=== PATIENT | female | born 1985 | race African-American/Black ===

== ENCOUNTER 2017-06-07 12:42 | Observation (INO) | payer MEDICAID ==
[~2017-06-07] VITALS: Ht 170.2 cm; Wt 95.0 kg
[~2017-06-07 12:42] MED LIST: LEVE500 PO
[2017-06-07 12:46] VITALS: BP 179/100; PULSE 145; RESP 18; TEMP 100; O2SAT 94
[2017-06-07] MEDS ORDERED: SODIUM CHLOR 0.9% 1000 ML INJ 1,000 ML IV ONE (12:49)
[2017-06-07] MEDS ORDERED: LORazepam 2 MG/ML VIAL ONE (12:50)
[2017-06-07 12:59] VITALS: BP 151/65; PULSE 120; RESP 12; O2SAT 93
--- NOTE | 2017-06-07 12:59 | PD ---
HPI Chief Complaint: Seizure Time Seen by Provider: 12:49 Travel History International Travel<30 days: No Contact w/Intl Traveler<30days: No Traveled to known affect area: No History of Present Illness HPI 32-year-old female patient with history of seizures, is on Keppra, forgot to take her Keppra this morning because she was in her to go to congregational, had a seizure while at congregational, was post ictal when EMS brought her in, was able to answer some questions. However, had an additional seizure in the ER and she was given 2 of Ativan. Patient apparently doesn't have other significant medical issues. Modifying Factors: None Associated Signs & Symptoms: Seizures Risk Factors: History of seizures PFSH Past Medical History Headaches: Yes Seizures: Yes : 3 Para: 3 Miscarriage: 0 : 0 Past Surgical History Other Surgery: Yes (REMOVAL OF GALLSTONES) Social History Alcohol Use: No Tobacco Use: No Substance Use: No Allergies-Medications (Allergen,Severity, Reaction): Coded Allergies: No Known Allergies (Unverified , 05/07/16) Reported Meds & Prescriptions Reported Meds & Active Scripts Active Reported Keppra (Levetriacetam) 500 Mg Tab 500 Mg PO BID Review of Systems Except as stated in HPI: all other systems reviewed are Neg Physical Exam Narrative GENERAL: Well-developed young -[place] female patient currently in mild distress. Awake and oriented 3, but mildly lethargic. SKIN: Focused skin assessment warm/dry. HEAD: Atraumatic. Normocephalic. EYES: Pupils equal and round. No scleral icterus. No injection or drainage. ENT: No nasal bleeding or discharge. Mucous membranes pink and moist. NECK: Trachea midline. No JVD. CARDIOVASCULAR: Regular rate and rhythm. No murmur appreciated. RESPIRATORY: No accessory muscle use. Clear to auscultation. Breath sounds equal bilaterally. GASTROINTESTINAL: Abdomen soft, non-tender, nondistended. Hepatic and splenic margins not palpable. MUSCULOSKELETAL: No obvious deformities. No clubbing. No cyanosis. No edema. NEUROLOGICAL: Awake and mildly lethargic. No obvious cranial nerve deficits. Motor grossly within normal limits. Normal speech. PSYCHIATRIC: Appropriate mood and affect; insight and judgment normal. Data Data Last Documented VS Vital Signs Date Time Temp Pulse Resp B/P (MAP) Pulse Ox O2 Delivery O2 Flow Rate FiO2 06/07/17 14:01 18 97 Non-Rebreather 15.00 06/07/17 12:59 120 06/07/17 12:46 100.0 Orders Orders Complete Blood Count With Diff (06/07/17 12:49) Blood Glucose (06/07/17 12:49) Ecg Monitoring (06/07/17 12:49) Iv Access Insert/Monitor (06/07/17 12:49) Oximetry (06/07/17 12:49) Comprehensive Metabolic Panel (06/07/17 12:49) Sodium Chlor 0.9% 1000 Ml Inj (Ns 1000 M (06/07/17 12:49) Sodium Chloride 0.9% Flush (Ns Flush) (06/07/17 13:00) Lorazepam Inj (Ativan Inj) (06/07/17 13:00) Lorazepam Inj (Ativan Inj) (06/07/17 12:50) Levetiracetam (Keppra) (06/07/17 13:00) Chest, Single Ap (06/07/17 12:50) Ed Urine Pregnancytest Poc (06/07/17 12:50) Place In Observation (06/07/17 ) Code Status (06/07/17 15:02) Vital Signs (Adult) Q4H (06/07/17 15:02) Activity Oob Ad Noemi (06/07/17 15:02) Carpet Sewer / Telemetry .CONTINUOUS (06/07/17 15:02) Intake + Output JELANI.QSHIFT (06/07/17 15:02) Notify Dr: Other (06/07/17 15:02) Diet Npo (06/07/17 Dinner) Sodium Chlor 0.9% 1000 Ml Inj (Ns 1000 M (06/07/17 15:02) Sodium Chloride 0.9% Flush (Ns Flush) (06/07/17 15:15) Sodium Chloride 0.9% Flush (Ns Flush) (06/07/17 21:00) Acetaminophen (Tylenol) (06/07/17 15:15) Ondansetron Inj (Zofran Inj) (06/07/17 15:15) Basic Metabolic Panel (Bmp) (06/08/17 06:00) Complete Blood Count With Diff (06/08/17 06:00) Creatine Kinase (Cpk) (06/07/17 15:02) Creatine Kinase (Cpk) (06/07/17 21:02) Troponin I (06/07/17 15:02) Troponin I (06/07/17 21:02) Urinalysis - C+S If Indicated (06/07/17 15:02) Speech Therapy Consult-Eval/Tx (06/07/17 15:02) Case Management Consult (06/07/17 15:02) Scd Bilateral/Knee High JELANI.BID (06/07/17 15:02) Naloxone Inj (Narcan Inj) (06/07/17 15:15) Docusate Sodium-Senna (Heaven-Colace) (06/07/17 21:00) Magnesium Hydroxide Liq (Milk Of Magnesi (06/07/17 15:15) Sennosides (Senokot) (06/07/17 15:15) Bisacodyl Supp (Dulcolax Supp) (06/07/17 15:15) Lactulose Liq (Lactulose Liq) (06/07/17 15:15) Levetiracetam (06/07/17 15:06) Admit Order (Ed Use Only) (06/07/17 15:05) Labs Laboratory Tests Test 06/07/17 13:15 White Blood Count 12.3 TH/MM3 Red Blood Count 4.44 MIL/MM3 Hemoglobin 12.5 GM/DL Hematocrit 39.8 % Mean Corpuscular Volume 89.7 FL Mean Corpuscular Hemoglobin 28.2 PG Mean Corpuscular Hemoglobin Concent 31.4 % Red Cell Distribution Width 13.6 % Platelet Count 282 TH/MM3 Mean Platelet Volume 9.7 FL Neutrophils (%) (Auto) 67.9 % Lymphocytes (%) (Auto) 22.3 % Monocytes (%) (Auto) 8.2 % Eosinophils (%) (Auto) 0.9 % Basophils (%) (Auto) 0.7 % Neutrophils # (Auto) 8.3 TH/MM3 Lymphocytes # (Auto) 2.7 TH/MM3 Monocytes # (Auto) 1.0 TH/MM3 Eosinophils # (Auto) 0.1 TH/MM3 Basophils # (Auto) 0.1 TH/MM3 CBC Comment DIFF FINAL Differential Comment Blood Urea Nitrogen 10 MG/DL Creatinine 1.07 MG/DL Random Glucose 114 MG/DL Total Protein 8.9 GM/DL Albumin 3.8 GM/DL Calcium Level 9.0 MG/DL Alkaline Phosphatase 127 U/L Aspartate Amino Transf (AST/SGOT) 29 U/L Alanine Aminotransferase (ALT/SGPT) 45 U/L Total Bilirubin 0.6 MG/DL Sodium Level 139 MEQ/L Potassium Level 3.7 MEQ/L Chloride Level 108 MEQ/L Carbon Dioxide Level 12.9 MEQ/L Anion Gap 18 MEQ/L Estimat Glomerular Filtration Rate 73 ML/MIN MDM Medical Decision Making Medical Screen Exam Complete: Yes Emergency Medical Condition: Yes Medical Record Reviewed: Yes Interpretation(s) Laboratory Tests Test 06/07/17 13:15 White Blood Count 12.3 TH/MM3 (4.0-11.0) Mean Corpuscular Hemoglobin Concent 31.4 % (32.0-36.0) Monocytes (%) (Auto) 8.2 % (0.0-8.0) Neutrophils # (Auto) 8.3 TH/MM3 (1.8-7.7) Monocytes # (Auto) 1.0 TH/MM3 (0-0.9) Creatinine 1.07 MG/DL (0.50-1.00) Random Glucose 114 MG/DL (74-106) Total Protein 8.9 GM/DL (6.4-8.2) Alkaline Phosphatase 127 U/L (45-117) Chloride Level 108 MEQ/L (98-107) Carbon Dioxide Level 12.9 MEQ/L (21.0-32.0) Anion Gap 18 MEQ/L (5-15) Estimat Glomerular Filtration Rate 73 ML/MIN (>89) Differential Diagnosis Seizure: Breakthrough seizure versus noncompliance versus metabolic issues Narrative Course Patient had another seizure in the ER and had to be given Ativan. At this point , she had 2 seizures in fairly close succession and my plan would be to admit her for some observation. Patient had been given Keppra as well by mouth. Case was discussed with Dr. Mccarthy for admission. Diagnosis Primary Impression: Seizures Admitting Information Admitting Physician Requests: Admit Atif Ahn MD Jun 07, 2017 12:59
[2017-06-07] MEDS ORDERED: SODIUM CHLORIDE 0.9% FLUSH 10 ML FLUSH IVF PRN (13:00)
[2017-06-07] MEDS ORDERED: LORazepam 2 MG/ML VIAL IVS ONE (13:00)
[2017-06-07] MEDS ORDERED: levETIRAcetam 500 MG TAB PO ONE (13:00)
[2017-06-07 13:40] LABS: AUTOMATED NEUTROPHIL # 8.3 TH/MM3 (1.8-7.7); BASOPHIL # 0.1 TH/MM3 (0-0.2); BASOPHIL % 0.7 % (0.0-2.0); EOSINOPHIL # 0.1 TH/MM3 (0-0.4); EOSINOPHIL % 0.9 % (0.0-4.0); HEMATOCRIT 39.8 % (35.0-46.0); HEMO FLAGS DIFF FINAL; LYMPH % 22.3 % (9.0-44.0); LYMPHOCYTE # 2.7 TH/MM3 (1.0-4.8); MEAN CELL VOLUME 89.7 FL (80.0-100.0); MEAN CORPUSCULAR HEMOGLOBIN 28.2 PG (27.0-34.0); MEAN CORPUSCULAR HGB CONC 31.4 % (32.0-36.0); MONO % 8.2 % (0.0-8.0); NEUT % 67.9 % (16.0-70.0); PLATELET COUNT 282 TH/MM3 (150-450); RED BLOOD COUNT 4.44 MIL/MM3 (4.00-5.30); RED CELL DISTRIBUTION WIDTH 13.6 % (11.6-17.2); WHITE BLOOD COUNT 12.3 TH/MM3 (4.0-11.0)
[2017-06-07 13:57] LABS: ALT (GPT) 45 U/L (10-53)
[2017-06-07 14:00] LABS: ALKALINE PHOSPHATASE 127 U/L (45-117); TOTAL BILIRUBIN ADULT 0.6 MG/DL (0.2-1.0)
[2017-06-07 14:01] VITALS: RESP 18; O2SAT 97
[2017-06-07 14:02] LABS: ANION GAP 18 MEQ/L (5-15); AST (GOT) 29 U/L (15-37); BICARBONATE 12.9 MEQ/L (21.0-32.0); BLOOD UREA NITROGEN 10 MG/DL (7-18); CHLORIDE 108 MEQ/L (98-107); GLOMERULAR FILTRATION RATE 73 ML/MIN (>89); POTASSIUM 3.7 MEQ/L (3.5-5.1); SODIUM (NA) 139 MEQ/L (136-145)
--- NOTE | 2017-06-07 14:19 | RADRPT ---
EXAM DATE/TIME: 06/07/2017 13:47 [facility] COMPARISON: No previous studies available for comparison. INDICATIONS : Fever MEDICAL HISTORY : None. SURGICAL HISTORY : None. ENCOUNTER: Initial ACUITY: 1 day PAIN SCORE: 0/10 LOCATION: Bilateral chest FINDINGS: A single AP erect portable view of the chest was obtained. The study is Midinspiratory with crowding of the lung vasculature. There is hazy density in both lungs. The heart size appears within normal li mits with no focal consolidation or effusion. The bony thorax is intact. CONCLUSION: Suboptimal Midinspiratory exam with hazy opacity in both lungs which could be artifactual. Hector Judd MD on June 07, 2017 at 14:17 Board Certified Radiologist. This report was verified electronically.
--- NOTE | 2017-06-07 15:07 | HHI.HP ---
[facility] Unknown Admission Diagnosis Diagnoses: Chief Complaint: Seizure disorder. Travel History International Travel<30 Days: No Contact w/Intl Traveler <30 Da: No Traveled to Known Affected Are: No History of Present Illness This is a pleasant 32 y/o Female with history of seizures, is on Keppra, forgot to take her Keppra this morning because she was in her to go to baptism, had a seizure while at baptism, was post ictal when EMS brought her in, was able to answer some questions. However, had an additional seizure in the ER and she was given 2 of Ativan. Patient apparently doesn't have other significant medical issues. she is been seen in Emergency room the patient is very clear she is non compliant with her Keppra and only takes one daily and some times she takes two dosages, will complete 1000 mg and continue every 12 hours, she has Obesity and denies drug abuse. Review of Systems Constitutional: DENIES: Fever, Chills, Change in appetite Endocrine: DENIES: Heat/cold intolerance Eyes: DENIES: Blurred vision, Eye pain Neurologic: COMPLAINS OF: Seizures Except as stated in HPI: all other systems reviewed are Neg Past Family Social History Past Medical History Seizure disorder Obesity Past Surgical History Cholecystectomy Tubal ligation Reported Medications Reported Meds & Active Scripts Active Reported Keppra (Levetriacetam) 500 Mg Tab 500 Mg PO BID Allergies: Coded Allergies: No Known Allergies (Unverified , 05/07/16) Active Ordered Medications Current Medications Medications (Trade) Dose Ordered Sig/Yvonne Route Start Time Stop Time Status Last Admin (NS Flush) 2 ml UNSCH PRN IVF 06/07/17 13:00 Sodium Chloride 1,000 ml @ 100 mls/hr Q10H IV 06/07/17 15:02 (NS Flush) 2 ml UNSCH PRN IV FLUSH 06/07/17 15:15 (NS Flush) 2 ml BID IV FLUSH 06/07/17 21:00 (Tylenol) 650 mg Q4H PRN PO 06/07/17 15:15 (Zofran Inj) 4 mg Q6H PRN IVP 06/07/17 15:15 (Narcan Inj) 0.4 mg UNSCH PRN IV PUSH 06/07/17 15:15 (Heaven-Colace) 1 tab BID PO 06/07/17 21:00 (Milk Of Magnesia Liq) 30 ml Q12H PRN PO 06/07/17 15:15 (Senokot) 17.2 mg Q12H PRN PO 06/07/17 15:15 (Dulcolax Supp) 10 mg DAILY PRN RECTAL 06/07/17 15:15 (Lactulose Liq) 30 ml DAILY PRN PO 06/07/17 15:15 Family History asked and negative. Social History Denies any toxic habits. Physical Exam Vital Signs Vital Signs Date Time Temp Pulse Resp B/P (MAP) Pulse Ox O2 Delivery O2 Flow Rate FiO2 06/07/17 14:01 18 97 Non-Rebreather 15.00 06/07/17 12:59 120 12 151/65 (93) 93 Non-Rebreather 15.00 06/07/17 12:55 130 18 91 Non-Rebreather 15.00 06/07/17 12:46 100.0 145 18 179/100 (126) 94 Physical Exam GENERAL: Obesity, alert and oriented x 3. SKIN: Focused skin assessment warm/dry. HEAD: Atraumatic. Normocephalic. EYES: Pupils equal and round. No scleral icterus. No injection or drainage. ENT: No nasal bleeding or discharge. Mucous membranes pink and moist. NECK: Trachea midline. No JVD. CARDIOVASCULAR: Regular rate and rhythm. No murmur appreciated. RESPIRATORY: No accessory muscle use. Clear to auscultation. Breath sounds equal bilaterally. GASTROINTESTINAL: Abdomen soft, non-tender, nondistended. Hepatic and splenic margins not palpable. MUSCULOSKELETAL: No obvious deformities. No clubbing. No cyanosis. No edema. NEUROLOGICAL: Awake and mildly lethargic. No obvious cranial nerve deficits. Motor grossly within normal limits. Normal speech. PSYCHIATRIC: Appropriate mood and affect; insight and judgment normal. Laboratory Laboratory Tests Test 06/07/17 13:15 White Blood Count 12.3 Red Blood Count 4.44 Hemoglobin 12.5 Hematocrit 39.8 Mean Corpuscular Volume 89.7 Mean Corpuscular Hemoglobin 28.2 Mean Corpuscular Hemoglobin Concent 31.4 Red Cell Distribution Width 13.6 Platelet Count 282 Mean Platelet Volume 9.7 Neutrophils (%) (Auto) 67.9 Lymphocytes (%) (Auto) 22.3 Monocytes (%) (Auto) 8.2 Eosinophils (%) (Auto) 0.9 Basophils (%) (Auto) 0.7 Neutrophils # (Auto) 8.3 Lymphocytes # (Auto) 2.7 Monocytes # (Auto) 1.0 Eosinophils # (Auto) 0.1 Basophils # (Auto) 0.1 CBC Comment DIFF FINAL Differential Comment Blood Urea Nitrogen 10 Creatinine 1.07 Random Glucose 114 Total Protein 8.9 Albumin 3.8 Calcium Level 9.0 Alkaline Phosphatase 127 Aspartate Amino Transf (AST/SGOT) 29 Alanine Aminotransferase (ALT/SGPT) 45 Total Bilirubin 0.6 Sodium Level 139 Potassium Level 3.7 Chloride Level 108 Carbon Dioxide Level 12.9 Anion Gap 18 Estimat Glomerular Filtration Rate 73 Result Diagram: 06/07/17 1315 06/07/17 1315 Imaging Last Impressions Chest X-Ray 06/07/17 1250 Signed Impressions: Service Date/Time: Wednesday, June 07, 2017 13:47 - CONCLUSION: Suboptimal Midinspiratory exam with hazy opacity in both lungs which could be artifactual. MD Flakito Burrisi VTE Risk Assessment Caprini VTE Risk Assessment: No/Low Risk (score <= 1) Caprini Risk Assessment Model Point Value = 1 Point Value = 2 Point Value = 3 Point Value = 5 Age 41-60 Minor surgery BMI > 25 kg/m2 Swollen legs Varicose veins or History of unexplained or recurrent spontaneous Oral contraceptives or hormone replacement Sepsis (< 1 month) Serious lung disease, including pneumonia (< 1 month) Abnormal pulmonary function Acute myocardial infarction Congestive heart failure (< 1 month) History of inflammatory bowel disease Medical patient at bed rest Age 61-74 Arthroscopic surgery Major open surgery (> 45 min) Laparoscopic surgery (> 45 min) Malignancy Confined to bed (> 72 hours) Immobilizing plaster cast Central venous access Age >= 75 History of VTE Family history of VTE Factor V Leiden Prothrombin [id number] Lupus anticoagulant Anticardiolipin antibodies Elevated serum homocysteine Heparin-induced thrombocytopenia Other congenital or acquired thrombophilia Stroke (< 1 month) Elective arthroplasty Hip, pelvis, or leg fracture Acute spinal cord injury (< 1 month) Prophylaxis Regimen Total Risk Factor Score Risk Level Prophylaxis Regimen 0-1 Low Early ambulation 2 Moderate Order ONE of the following: *Sequential Compression Device (SCD) *Heparin 5000 units SQ BID 3-4 Higher Order ONE of the following medications: *Heparin 5000 units SQ TID *Enoxaparin/Lovenox 40 mg SQ daily (WT < 150 kg, CrCl > 30 mL/min) *Enoxaparin/Lovenox 30 mg SQ daily (WT < 150 kg, CrCl > 10-29 mL/min) *Enoxaparin/Lovenox 30 mg SQ BID (WT < 150 kg, CrCl > 30 mL/min) AND/OR *Sequential Compression Device (SCD) 5 or more Highest Order ONE of the following medications: *Heparin 5000 units SQ TID (Preferred with Epidurals) *Enoxaparin/Lovenox 40 mg SQ daily (WT < 150 kg, CrCl > 30 mL/min) *Enoxaparin/Lovenox 30 mg SQ daily (WT < 150 kg, CrCl > 10-29 mL/min) *Enoxaparin/Lovenox 30 mg SQ BID (WT < 150 kg, CrCl > 30 mL/min) AND *Sequential Compression Device (SCD) Assessment and Plan Assessment and Plan 1. Seizure: Breakthrough seizure versus noncompliance, she is very non compliant , given 1000 mg of Keppra 500mg given by mouth and 500 mg IV and continue 500 mg by mouth every 12 hours, asked for levetiracetam level and follow seizure precautions, continue Ativan 1mg every 6 hours, NPO and continue IV fluids. Drug screen 2. Obesity strongly recommended diet and exercise 3. Severe Non compliance strongly recommended to be compliant with medicines 4. Metabolic acidosis and respiratory insufficiency continue nasal cannula and follow. DVT prophylaxis SCDs. Code Status Full code. Discussed Condition With Atif Ahn MD, Guillermo MD Jun 07, 2017 3:07 pm
[2017-06-07 15:12] VITALS: BP 133/73; PULSE 128; RESP 12; O2SAT 88; O2SAT 94; O2SAT 96
[2017-06-07] MEDS ORDERED: BISACODYL 10 MG SUPP RECTAL PRN (15:15)
[2017-06-07] MEDS ORDERED: ONDANSETRON HCL 4 MG/2 ML VIAL IVP PRN (15:15)
[2017-06-07] MEDS ORDERED: LACTULOSE SYRUP 20 GM/30 ML CUP PO PRN (15:15)
[2017-06-07] MEDS ORDERED: SENNOSIDES 8.6 MG TAB PO PRN (15:15)
[2017-06-07] MEDS ORDERED: MAGNESIUM HYDROXIDE SUSP 30 ML CUP PO PRN (15:15)
[2017-06-07] MEDS ORDERED: SODIUM CHLORIDE 0.9% FLUSH 10 ML FLUSH IV FLUSH PRN (15:15)
[2017-06-07] MEDS ORDERED: NALOXONE HCL 0.4 MG/ML AMP IV PUSH PRN (15:15)
[2017-06-07] MEDS ORDERED: levETIRAcetam 500MG PREMIX INJ 100 ML IV SCH (16:00)
[2017-06-07] MEDS ORDERED: LORazepam 2 MG/ML VIAL IV PUSH PRN (16:45)
[2017-06-07] MEDS: SODIUM CHLOR 0.9% 1000 ML INJ 1,000 ML IV SCH (16:48)
[2017-06-07] MEDS: levETIRAcetam 500 MG/NS 100 ML IV SCH ×2 (16:48)
[2017-06-07 17:41] LABS: CREATINE KINASE 182 U/L (26-192)
[2017-06-07 17:44] VITALS: BP 127/80; PULSE 114; RESP 18; TEMP 100.1; O2SAT 99
[2017-06-07] MEDS: ACETAMINOPHEN 325 MG TAB PO PRN (18:10)
[2017-06-07 20:27] VITALS: BP 136/73; PULSE 110; RESP 18; TEMP 98.7; O2SAT 100
[2017-06-07] MEDS: DOCUSATE SODIUM 50 MG/SENNA 8.6 MG TAB PO SCH (20:58)
[2017-06-07] MEDS: SODIUM CHLORIDE 0.9% FLUSH 10 ML FLUSH IV FLUSH SCH (21:00)
[2017-06-07 22:05] LABS: BACTERIA, URINE RARE /hpf; BLOOD, URINE MOD (NEG); COMMENT (UR) CULT NOT INDICATED; CULTURE IF INDICATED CULT NOT INDICATED; GLUCOSE,URINE NEG (NEG); KETONE, URINE NEG (NEG); MUCUS URINE FEW /lpf (OCC); NITRITE,URINE NEG (NEG); PH, URINE 5.5 (5.0-8.5); URINE COLOR LIGHT-YELLOW (YELLW/STRAW)
[2017-06-07 23:25] LABS: CKMB 1.7 NG/ML (0.5-3.6)
[2017-06-08] VITALS (10 sets, daily range): BP systolic 126–189; BP diastolic 69–99; PULSE 74–111; RESP 16–24; TEMP 98.2–100.5; O2SAT 92–100
[2017-06-08] MEDS: SODIUM CHLOR 0.9% 1000 ML INJ 1,000 ML IV SCH ×3 (01:02→20:34)
[2017-06-08 05:15] LABS: AUTOMATED NEUTROPHIL # 5.7 TH/MM3 (1.8-7.7); BASOPHIL % 0.3 % (0.0-2.0); EOSINOPHIL # 0.1 TH/MM3 (0-0.4); EOSINOPHIL % 0.9 % (0.0-4.0); HEMATOCRIT 32.4 % (35.0-46.0); HEMO FLAGS DIFF FINAL; LYMPH % 17.4 % (9.0-44.0); LYMPHOCYTE # 1.4 TH/MM3 (1.0-4.8); MEAN CELL VOLUME 85.9 FL (80.0-100.0); MEAN CORPUSCULAR HEMOGLOBIN 27.3 PG (27.0-34.0); MEAN CORPUSCULAR HGB CONC 31.8 % (32.0-36.0); MONO % 10.1 % (0.0-8.0); NEUT % 71.3 % (16.0-70.0); PLATELET COUNT 244 TH/MM3 (150-450); RED BLOOD COUNT 3.77 MIL/MM3 (4.00-5.30); RED CELL DISTRIBUTION WIDTH 13.1 % (11.6-17.2)
[2017-06-08 05:59] LABS: BICARBONATE 22.8 MEQ/L (21.0-32.0); POTASSIUM 3.5 MEQ/L (3.5-5.1)
[2017-06-08 06:15] LABS: CKMB 1.2 NG/ML (0.5-3.6)
[2017-06-08] MEDS: DOCUSATE SODIUM 50 MG/SENNA 8.6 MG TAB PO SCH ×2 (07:36→20:34)
[2017-06-08] MEDS: SODIUM CHLORIDE 0.9% FLUSH 10 ML FLUSH IV FLUSH SCH ×2 (07:36→20:34)
[2017-06-08] MEDS: levETIRAcetam 500 MG/NS 100 ML IV SCH ×2 (07:37)
[2017-06-08] MEDS ORDERED: POTASSIUM CHLORIDE 20 MEQ CONTROLLED RELEASE TAB PO ONE (12:45)
--- NOTE | 2017-06-08 12:53 | HHI.PR ---
Subjective Remarks The patient said that she had 2 seizures yesterday. She said she missed her Keppra dose in the morning. She says her last seizure was a year from this past April. She does have a neurologist in the area. She does endorse shortness of breath with minimal exertion. She says her chest hurts a little bit when she breathes deeply. She also endorses migraines which are now better. Objective Vitals Vital Signs Date Time Temp Pulse Resp B/P (MAP) Pulse Ox O2 Delivery O2 Flow Rate FiO2 06/08/17 12:27 98.6 95 16 131/77 (95) 100 06/08/17 09:42 98.9 93 18 126/69 (88) 100 06/08/17 08:00 95 06/08/17 06:36 83 06/08/17 04:27 98.7 74 18 138/78 (98) 98 06/08/17 00:19 98.2 84 18 130/69 (89) 98 06/07/17 20:27 98.7 110 18 136/73 (94) 100 06/07/17 17:44 100.1 114 18 127/80 (96) 99 06/07/17 17:01 06/07/17 15:12 128 12 133/73 (93) 96 Nasal Cannula 2.00 06/07/17 14:01 18 97 Non-Rebreather 15.00 06/07/17 12:59 120 12 151/65 (93) 93 Non-Rebreather 15.00 06/07/17 12:55 130 18 91 Non-Rebreather 15.00 06/07/17 12:46 100.0 145 18 179/100 (126) 94 I/O 06/07/17 06/07/17 06/07/17 06/08/17 06/08/17 06/08/17 07:00 15:00 23:00 07:00 15:00 23:00 Intake Total 1000 ml Output Total 900 ml Balance 1000 ml -900 ml Intake IV Total 1000 ml Output Urine Total 900 ml # Voids 1 Result Diagram: 06/08/17 0434 06/08/17 0434 Imaging Last Impressions Chest X-Ray 06/07/17 1250 Signed Impressions: Service Date/Time: Wednesday, June 07, 2017 13:47 - CONCLUSION: Suboptimal Midinspiratory exam with hazy opacity in both lungs which could be artifactual. Hector Judd MD Objective Remarks GENERAL: Resting comfortably in bed. SKIN: Focused skin assessment warm/dry. HEAD: Atraumatic. Normocephalic. EYES: Pupils equal and round. No scleral icterus. No injection or drainage. ENT: No nasal bleeding or discharge. Mucous membranes pink and moist. NECK: Trachea midline. No JVD. CARDIOVASCULAR: Regular rate and rhythm. No murmur appreciated. RESPIRATORY: No accessory muscle use. Slight crackles at the bases. GASTROINTESTINAL: Abdomen soft, non-tender, nondistended. Hepatic and splenic margins not palpable. MUSCULOSKELETAL: No obvious deformities. No clubbing. No cyanosis. No edema. No chest wall tenderness. NEUROLOGICAL: Awake and alert. No obvious cranial nerve deficits. Motor grossly within normal limits. Normal speech. PSYCHIATRIC: Appropriate mood and affect; insight and judgment normal. Medications and IVs Current Medications Medications (Trade) Dose Ordered Sig/Yvonne Route Start Time Stop Time Status Last Admin Sodium Chloride 1,000 ml @ 100 mls/hr Q10H IV 06/07/17 15:02 06/07/17 16:48 (NS Flush) 2 ml UNSCH PRN IV FLUSH 06/07/17 15:15 (NS Flush) 2 ml BID IV FLUSH 06/07/17 21:00 06/08/17 07:36 (Tylenol) 650 mg Q4H PRN PO 06/07/17 15:15 06/07/17 18:10 (Zofran Inj) 4 mg Q6H PRN IVP 06/07/17 15:15 (Narcan Inj) 0.4 mg UNSCH PRN IV PUSH 06/07/17 15:15 (Heaven-Colace) 1 tab BID PO 06/07/17 21:00 06/08/17 07:36 (Milk Of Magnesia Liq) 30 ml Q12H PRN PO 06/07/17 15:15 (Senokot) 17.2 mg Q12H PRN PO 06/07/17 15:15 (Dulcolax Supp) 10 mg DAILY PRN RECTAL 06/07/17 15:15 (Lactulose Liq) 30 ml DAILY PRN PO 06/07/17 15:15 (Ativan Inj) 1 mg Q4H PRN IV PUSH 06/07/17 16:45 (Keppra) 500 mg Q12HR PO 06/08/17 21:00 Current Medications Medications (Trade) Dose Ordered Sig/Yvonne Route Start Time Stop Time Status Last Admin Sodium Chloride 1,000 ml @ 100 mls/hr Q10H IV 06/07/17 15:02 06/07/17 16:48 (NS Flush) 2 ml UNSCH PRN IV FLUSH 06/07/17 15:15 (NS Flush) 2 ml BID IV FLUSH 06/07/17 21:00 06/08/17 07:36 (Tylenol) 650 mg Q4H PRN PO 06/07/17 15:15 06/07/17 18:10 (Zofran Inj) 4 mg Q6H PRN IVP 06/07/17 15:15 (Narcan Inj) 0.4 mg UNSCH PRN IV PUSH 06/07/17 15:15 (Heaven-Colace) 1 tab BID PO 06/07/17 21:00 06/08/17 07:36 (Milk Of Magnesia Liq) 30 ml Q12H PRN PO 06/07/17 15:15 (Senokot) 17.2 mg Q12H PRN PO 06/07/17 15:15 (Dulcolax Supp) 10 mg DAILY PRN RECTAL 06/07/17 15:15 (Lactulose Liq) 30 ml DAILY PRN PO 06/07/17 15:15 (Ativan Inj) 1 mg Q4H PRN IV PUSH 06/07/17 16:45 (Keppra) 500 mg Q12HR PO 06/08/17 21:00 A/P Assessment and Plan Seizure disorder The pt missed her dose of Keppra the morning of her seizures. She was started on IV Keppra. - switch back to PO Keppra. - seizure precautions. - EEG pending. - consider neurology consult. Metabolic acidosis Likely s/t seizures. - Has resolved. Respiratory insufficiency The pt endorses shortness of breath with minimal exertion. CXR with ? of opacities. - cover with ceftriaxone and azithromycin. - check PA/ lateral. - continue nasal cannula and follow. - check a BNP ad EKG. Anemia May be dilutional. - check CBC in AM. DVT prophylaxis SCDs Discharge Planning Awaiting further work-up Hector Vicente DO Jun 08, 2017 12:53
[2017-06-08] MEDS: AZITHROMYCIN INJ 500 MG in SODIUM CHLOR 0.9% 250 ML INJ 250 ML IV SCH (13:55)
[2017-06-08] MEDS: cefTRIAXone INJ 1,000 MG in SODIUM CHLORIDE 0.9% INJ 100 ML IV SCH (13:56)
--- NOTE | 2017-06-08 14:20 | RADRPT ---
EXAM DATE/TIME: 06/08/2017 12:45 [facility] COMPARISON: CHEST SINGLE AP, June 07, 2017, 13:47. INDICATIONS : Short of breath MEDICAL HISTORY : None. SURGICAL HISTORY : None. ENCOUNTER: Subsequent ACUITY: 2 days PAIN SCORE: 0/10 LOCATION: chest FINDINGS: The heart is normal in size. The mediastinal contours are within normal limits. The exam does demonstrate parenchymal opacity within both lungs. I believe this is artifactual from o verlying breast tissue. No definite focal or segmental pneumonia is seen. If symptoms persist CT imag ing of the thorax could be performed. The bony structures are intact. CONCLUSION: Patchy areas of parenchymal opacity most notably on the left. I believe this is probably artifactual from overlying breast tissue. Appearance of the chest is similar to previous dated 06/07/17. Please se e above. Dread Jimenez MD on June 08, 2017 at 14:16 Board Certified Radiologist. This report was verified electronically.
[2017-06-08] MEDS: levETIRAcetam 500 MG TAB PO SCH (20:33)
[2017-06-08] MEDS: ACETAMINOPHEN 325 MG TAB PO PRN (20:34)
--- NOTE | 2017-06-08 23:56 | MG ---
cc: OMAR MARINO Sex: [id number] Race: [id number] Hyperventilation not performed. She forgot to take her Keppra and had seizures in [facility]. DESCRIPTION: A symmetric 10 Hz 40-50 microvolt posterior rhythm is seen. Overall the recording is synchronous and symmetric. Photic stimulation was performed without significant posterior driving. I do not see any hemisphere asymmetries, no epileptiform or seizure activity is noted. The patient falls asleep and reaches stage II sleep towards the end of the recording. IMPRESSION A normal awake and stage II sleep EEG, no evidence of focal or diffuse abnormality. MD LAURITA Francisco/GIANCARLO /9:05 PM /11:50 PM
[2017-06-09] VITALS (7 sets, daily range): BP systolic 133–146; BP diastolic 78–91; PULSE 89–102; RESP 18–20; TEMP 98.4–99.1; O2SAT 94–99
[2017-06-09 05:32] LABS: HEMATOCRIT 32.4 % (35.0-46.0); MEAN CELL VOLUME 85.9 FL (80.0-100.0); MEAN CORPUSCULAR HEMOGLOBIN 28.3 PG (27.0-34.0); MEAN CORPUSCULAR HGB CONC 32.9 % (32.0-36.0); PLATELET COUNT 242 TH/MM3 (150-450); RED BLOOD COUNT 3.77 MIL/MM3 (4.00-5.30); RED CELL DISTRIBUTION WIDTH 12.7 % (11.6-17.2); REVIEW FLAG FINAL; WHITE BLOOD COUNT 6.2 TH/MM3 (4.0-11.0)
[2017-06-09 05:46] LABS: BICARBONATE 22.6 MEQ/L (21.0-32.0); MAGNESIUM 1.9 MG/DL (1.5-2.5); POTASSIUM 3.6 MEQ/L (3.5-5.1)
[2017-06-09] MEDS: SODIUM CHLOR 0.9% 1000 ML INJ 1,000 ML IV SCH (06:18)
[2017-06-09] MEDS: DOCUSATE SODIUM 50 MG/SENNA 8.6 MG TAB PO SCH (08:43)
[2017-06-09] MEDS: SODIUM CHLORIDE 0.9% FLUSH 10 ML FLUSH IV FLUSH SCH (08:43)
[2017-06-09] MEDS: levETIRAcetam 500 MG TAB PO SCH (08:43)
--- NOTE | 2017-06-09 13:55 | HHI.PR ---
Subjective Remarks The patient was resting comfortably. She says she felt better and wanted to go home. No further seizures. No further chest pain. Friends at bedside. Discussed with nursing. Objective Vitals Vital Signs Date Time Temp Pulse Resp B/P (MAP) Pulse Ox O2 Delivery O2 Flow Rate FiO2 06/09/17 11:37 98.5 89 20 139/78 (98) 94 06/09/17 08:11 98.8 94 20 144/83 (103) 97 06/09/17 08:00 102 06/09/17 05:26 98.4 96 18 146/90 (108) 98 06/09/17 05:08 97 06/09/17 00:45 98.4 102 18 143/91 (108) 95 06/08/17 23:53 103 06/08/17 22:50 18 06/08/17 20:23 98.6 105 20 143/83 (103) 92 06/08/17 20:10 111 06/08/17 15:12 100.5 108 24 152/88 (109) 95 I/O 06/08/17 06/08/17 06/08/17 06/09/17 06/09/17 06/09/17 07:00 15:00 23:00 07:00 15:00 23:00 Intake Total 105 ml 350 ml Output Total 900 ml Balance -900 ml 105 ml 350 ml Intake IV Total 105 ml 350 ml Output Urine Total 900 ml # Voids 1 Result Diagram: 06/09/17 0450 06/09/17 0450 Imaging Last Impressions Chest X-Ray 06/08/17 0000 Signed Impressions: Service Date/Time: Thursday, June 08, 2017 12:45 - CONCLUSION: Patchy areas of parenchymal opacity most notably on the left. I believe this is probably artifactual from overlying breast tissue. Appearance of the chest is similar to previous dated 06/07/17. Please see above. Dread Jimenez MD Objective Remarks GENERAL: Resting comfortably in bed. SKIN: Focused skin assessment warm/dry. HEAD: Atraumatic. Normocephalic. EYES: Pupils equal and round. No scleral icterus. No injection or drainage. ENT: No nasal bleeding or discharge. Mucous membranes pink and moist. NECK: Trachea midline. No JVD. CARDIOVASCULAR: Regular rate and rhythm. No murmur appreciated. RESPIRATORY: No accessory muscle use. Clear to auscultation bilaterally. GASTROINTESTINAL: Abdomen soft, non-tender, nondistended. Hepatic and splenic margins not palpable. MUSCULOSKELETAL: No obvious deformities. No clubbing. No cyanosis. No edema. No chest wall tenderness. NEUROLOGICAL: Awake and alert. No obvious cranial nerve deficits. Motor grossly within normal limits. Normal speech. PSYCHIATRIC: Appropriate mood and affect; insight and judgment normal. Medications and IVs Current Medications Medications (Trade) Dose Ordered Sig/Yvonne Route Start Time Stop Time Status Last Admin Sodium Chloride 1,000 ml @ 100 mls/hr Q10H IV 06/07/17 15:02 06/09/17 06:18 (NS Flush) 2 ml UNSCH PRN IV FLUSH 06/07/17 15:15 (NS Flush) 2 ml BID IV FLUSH 06/07/17 21:00 06/09/17 08:43 (Tylenol) 650 mg Q4H PRN PO 06/07/17 15:15 06/08/17 20:34 (Zofran Inj) 4 mg Q6H PRN IVP 06/07/17 15:15 (Narcan Inj) 0.4 mg UNSCH PRN IV PUSH 06/07/17 15:15 (Heaven-Colace) 1 tab BID PO 06/07/17 21:00 06/09/17 08:43 (Milk Of Magnesia Liq) 30 ml Q12H PRN PO 06/07/17 15:15 (Senokot) 17.2 mg Q12H PRN PO 06/07/17 15:15 (Dulcolax Supp) 10 mg DAILY PRN RECTAL 06/07/17 15:15 (Lactulose Liq) 30 ml DAILY PRN PO 06/07/17 15:15 (Ativan Inj) 1 mg Q4H PRN IV PUSH 06/07/17 16:45 (Keppra) 500 mg Q12HR PO 06/08/17 21:00 06/09/17 08:43 Ceftriaxone Sodium 1000 mg/ Sodium Chloride 100 ml @ 200 mls/hr Q24H IV 06/08/17 14:00 06/08/17 13:56 Azithromycin 500 mg/Sodium Chloride 250 ml @ 250 mls/hr Q24H IV 06/08/17 15:00 06/08/17 13:55 A/P Assessment and Plan Seizure disorder The pt missed her dose of Keppra the morning of her seizures. She was started on IV Keppra. EEG unremarkable. No further seizures. - switch back to PO Keppra. - seizure precautions. - outpt neurology follow-up. Metabolic acidosis Likely s/t seizures. - Has resolved. Respiratory insufficiency The pt endorses shortness of breath with minimal exertion. BNP low. CXR with ? of opacities. - cover for CAP with ceftriaxone and azithromycin. - nebs as needed. Chest pain/ Elevated trops Trops peaked at 0.2. May be related to seizures. EKG reporting A flutter. - repeat EKG. - consult cardiology. - telemetry. Anemia May be dilutional. Stable. - check iron studies, B12, folate levels. DVT prophylaxis SCDs Discharge Planning Awaiting cardiology eval. D/c if cleared. Hector Vicente DO Jun 09, 2017 13:55
[2017-06-09] MEDS ORDERED: AZIT250T3 PO (13:57)
[2017-06-09] MEDS ORDERED: CEFU1TAB20 PO (13:57)
[2017-06-09 14:25] LABS: TRANSFERRIN IRON PROFILE 195 MG/DL (200-360)
[2017-06-09 14:50] LABS: FERRITIN 80 NG/ML (8-252)
[2017-06-09] MEDS: AZITHROMYCIN INJ 500 MG in SODIUM CHLOR 0.9% 250 ML INJ 250 ML IV SCH (14:57)
[2017-06-09] MEDS: cefTRIAXone INJ 1,000 MG in SODIUM CHLORIDE 0.9% INJ 100 ML IV SCH (14:59)
--- NOTE | 2017-06-09 17:34 | MB ---
cc: TERA SY DATE OF CONSULTATION: 06/09/2017 REASON FOR CONSULTATION: Abnormal troponin value HISTORY OF PRESENT ILLNESS: The patient is a 32-year-old female with history of seizure who is on Keppra chronically, forgot to take it prior to admission. She was at [facility], developed a seizure. She was given Ativan in the emergency department which resolved. She does not have any history of any significant comorbidities and no history of heart disease. Her initial troponin was mildly elevated but it has trended down. She denies any chest pain. She reports occasional shortness of breath but she is also overweight, has decreased functional status due to such. PAST MEDICAL HISTORY: Seizure disorder. Obesity. MEDICATIONS: Keppra. ALLERGIES: NO KNOWN DRUG ALLERGIES. REVIEW OF SYSTEMS 12-point review systems was reviewed. Review of systems was performed, negative, unless otherwise noted in the history of present illness. PHYSICAL EXAMINATION VITAL SIGNS: Temperature 99, pulse 92, blood pressure 133/90 mmHg. GENERAL: In general alert and oriented x3, in no acute distress. HEENT: Exam shows pupils reactive to light and accommodation, extraocular movements intact. NECK: No jugular venous distention, no thyromegaly, no lymphadenopathy, no carotid bruits. LUNGS: Clear to auscultation bilaterally. CARDIAC: Regular rate and rhythm. Distant heart sounds. No murmurs, rubs, or gallops. ABDOMEN: Non-tender, non-distended. Good bowel sounds. No hepatosplenomegaly. EXTREMITIES: No clubbing, cyanosis or edema. Good peripheral pulses. NEUROLOGIC: Cranial nerves intact. Motor sensory grossly intact. EKG: Electrocardiogram normal sinus rhythm, no significant ischemic changes. LABORATORY DATA: WBC 6.2, hemoglobin 7.7, platelet count 242, sodium 141, potassium 3.6, BUN 8, creatinine 0.75. ASSESSMENT: Minimal elevation in troponin, 0.20 now trending down. PLAN The patient never had chest pain. The patient's electrocardiogram is normal. I suspect this is probably related to the seizures. Given her age, lack of risk factors and lack of symptoms, there is no concern for obstructive coronary disease or congenital coronary anomaly. From a cardiac perspective, would rather not radiate her unnecessarily. She could be discharged with outpatient follow up with her primary care doctor. MD CHANDRIKA Ball /5:02 PM /5:10 PM
--- NOTE | 2017-06-10 08:53 | HHI.DCPOC ---
Discharge Care Plan Diagnosis: (1) Seizure disorder (2) Pneumonia Goals to Promote Your Health * To prevent worsening of your condition and complications * To maintain your health at the optimal level Directions to Meet Your Goals Take your medications as prescribed Follow your dietary instruction Follow activity as directed Keep your appointments as scheduled Take your immunizations and boosters as scheduled If your symptoms worsen call your PCP, if no PCP go to Urgent Care Center or Emergency Room Smoking is Dangerous to Your Health. Avoid second hand smoke Call the 24-hour hour crisis hotline for domestic abuse at Hector Vicente DO Jun 10, 2017 08:53
--- NOTE | 2017-06-10 08:56 | HHI.DS ---
Discharge Summary Admission Date Jun 07, 2017 at 15:08 Discharge Date: Jun 10, 2017 Admitting Diagnosis (1) Seizure disorder ICD Code: G40.909 - Epilepsy, unspecified, not intractable, without status epilepticus (2) Pneumonia ICD Code: J18.9 - Pneumonia, unspecified organism Procedures None Brief History - From Admission This is a pleasant 32 y/o Female with history of seizures, is on Keppra, forgot to take her Keppra this morning because she was in her to go to [facility], had a seizure while at [facility], was post ictal when EMS brought her in, was able to answer some questions. However, had an additional seizure in the ER and she was given 2 of Ativan. Patient apparently doesn't have other significant medical issues. she is been seen in Emergency room the patient is very clear she is non compliant with her Keppra and only takes one daily and some times she takes two dosages, will complete 1000 mg and continue every 12 hours, she has Obesity and denies drug abuse. CBC/BMP: 06/09/17 0450 06/09/17 0450 Significant Findings Laboratory Tests Test 06/07/17 13:15 06/07/17 16:33 06/07/17 21:00 06/07/17 22:09 White Blood Count 12.3 TH/MM3 (4.0-11.0) Mean Corpuscular Hemoglobin Concent 31.4 % (32.0-36.0) Monocytes (%) (Auto) 8.2 % (0.0-8.0) Neutrophils # (Auto) 8.3 TH/MM3 (1.8-7.7) Monocytes # (Auto) 1.0 TH/MM3 (0-0.9) Creatinine 1.07 MG/DL (0.50-1.00) Random Glucose 114 MG/DL (74-106) Total Protein 8.9 GM/DL (6.4-8.2) Alkaline Phosphatase 127 U/L (45-117) Chloride Level 108 MEQ/L (98-107) Carbon Dioxide Level 12.9 MEQ/L (21.0-32.0) Anion Gap 18 MEQ/L (5-15) Estimat Glomerular Filtration Rate 73 ML/MIN (>89) Troponin I LESS THAN 0.02 NG/ML 0.20 NG/ML (0.02-0.05) Levetiracetam (Keppra) Level <2.0 mcg/mL (12.0 - 46.0) Urine Occult Blood MOD (NEG) Urine RBC 25 /hpf (0-3) Urine Bacteria RARE /hpf (NONE) Urine Mucus FEW /lpf (OCC) Total Creatine Kinase 388 U/L (26-192) Test 06/08/17 04:34 06/09/17 04:50 Red Blood Count 3.77 MIL/MM3 (4.00-5.30) 3.77 MIL/MM3 (4.00-5.30) Hemoglobin 10.3 GM/DL (11.6-15.3) 10.7 GM/DL (11.6-15.3) Hematocrit 32.4 % (35.0-46.0) 32.4 % (35.0-46.0) Mean Corpuscular Hemoglobin Concent 31.8 % (32.0-36.0) Neutrophils (%) (Auto) 71.3 % (16.0-70.0) Monocytes (%) (Auto) 10.1 % (0.0-8.0) Blood Urea Nitrogen 6 MG/DL (7-18) Calcium Level 8.2 MG/DL (8.5-10.1) 8.4 MG/DL (8.5-10.1) Chloride Level 111 MEQ/L (98-107) 111 MEQ/L (98-107) Total Creatine Kinase 470 U/L (26-192) Troponin I 0.11 NG/ML (0.02-0.05) Vitamin B12 Level 1123 PG/ML (193-986) Folate 17.9 NG/ML (3.1-17.5) Imaging Last Impressions Chest X-Ray 06/08/17 0000 Signed Impressions: Service Date/Time: Thursday, June 08, 2017 12:45 - CONCLUSION: Patchy areas of parenchymal opacity most notably on the left. I believe this is probably artifactual from overlying breast tissue. Appearance of the chest is similar to previous dated 06/07/17. Please see above. Dread Jimenez MD PE at Discharge GENERAL: Resting comfortably in bed. SKIN: Focused skin assessment warm/dry. HEAD: Atraumatic. Normocephalic. EYES: Pupils equal and round. No scleral icterus. No injection or drainage. ENT: No nasal bleeding or discharge. Mucous membranes pink and moist. NECK: Trachea midline. No JVD. CARDIOVASCULAR: Regular rate and rhythm. No murmur appreciated. RESPIRATORY: No accessory muscle use. Clear to auscultation bilaterally. GASTROINTESTINAL: Abdomen soft, non-tender, nondistended. Hepatic and splenic margins not palpable. MUSCULOSKELETAL: No obvious deformities. No clubbing. No cyanosis. No edema. No chest wall tenderness. NEUROLOGICAL: Awake and alert. No obvious cranial nerve deficits. Motor grossly within normal limits. Normal speech. PSYCHIATRIC: Appropriate mood and affect; insight and judgment normal. Hospital Course Seizure disorder The pt missed her dose of Keppra the morning of her seizures. She was started on IV Keppra. EEG unremarkable. No further seizures. We switched her back to PO Keppra. She was placed on seizure precautions. She will have outpt neurology follow-up. Metabolic acidosis Resolved with supportive treatment. Respiratory insufficiency The pt endorses shortness of breath with minimal exertion. BNP low. CXR with ? of opacities. We covered for CAP with ceftriaxone and azithromycin. She will complete a course of antibiotics. Chest pain/ Elevated trops She endorsed chest pain with deep breathing. Trops peaked at 0.2. May be related to seizures. She was cleared for discharge by cardiology. She was monitored on telemetry. She will complete a course of antibiotics. Anemia The pt will need to follow up with her PCP. B12, folate and iron levels were not low. Pt Condition on Discharge: Stable Discharge Disposition: Discharge Home Discharge Time: > 30 minutes Discharge Instructions DIET: Follow Instructions for: Heart Healthy Diet Activities you can perform: Regular-No Restrictions Follow up Referrals: Neurology - 1 Week PCP Follow-up - 1 Week New Medications: Azithromycin (Azithromycin) 250 Mg Tab 250 MG PO DAILY for Infection for 3 Days, #3 TAB 0 Refills Cefuroxime (Cefuroxime) 500 Mg Tab 500 MG PO BID for Infection for 5 Days, #10 TAB 0 Refills Continued Medications: Levetiracetam (Keppra) 500 Mg Tab 500 MG PO BID, TAB Hector Vicente DO Jun 10, 2017 08:56
--- NOTE | 2017-06-10 15:23 | EKG ---
Date Performed: 06/09/2017 Time Performed: 13:59:29 PTAGE: 32 years EKG: Sinus rhythm NONSPECIFIC T-WAVE ABNORMALITY BORDERLINE ECG PREVIOUS TRACING : 04/24/2016 17.04 Compared to the previous tracing rate slower DOCTOR: Zari Pruitt Interpretating Date/Time 06/10/2017 15:23:06
== END 2017-06-09 19:26 | disposition home or self-care (01) ==
LOC: NEPC 12:42 → NEDA 15:08 → NEPGCP 17:18
PROVIDERS: ADMIT Hospitalist; ATTEND Hospitalist
DX: G40.909 Epilepsy, unspecified, not intractable, without status epilepticus (principal); J18.9 Pneumonia, unspecified organism; R06.02 Shortness of breath; R94.31 Abnormal electrocardiogram [ECG] [EKG]; R50.9 Fever, unspecified; E87.2 Acidosis; D64.9 Anemia, unspecified; Z91.14 Patient's other noncompliance with medication regimen
CPT/HCPCS: 71010; 71020; 80048; 80053; 80177; 80307; 81001; 82550; 82552; 82607; 82728; 82746; 83540; 83550; 83735; 83880; 84484; 84703; 85025; 85027; 92526; 92610; 93005; 95819; 96361; 96365; 96366; 96367; 96368; 99285; G0378; G8996; G8997; G8998; J0456; J0696; J1953; J7030; J7050; J2060

== ENCOUNTER 2017-10-22 18:32 | Emergency (ER) | payer MEDICAID ==
[~2017-10-22] VITALS: Ht 170.2 cm; Wt 113.6 kg
[~2017-10-22 18:32] MED LIST changes: +AZIT250T3 PO; +CEFU1TAB20 PO
[2017-10-22 18:45] VITALS: BP 166/76; PULSE 102; RESP 14; TEMP 98.2; O2SAT 98
--- NOTE | 2017-10-22 22:20 | PD ---
HPI Chief Complaint: Cold / Flu Symptoms Time Seen by Provider: 22:19 Travel History International Travel<30 days: No Contact w/Intl Traveler<30days: No Traveled to known affect area: No History of Present Illness HPI 32-year-old female came to the emergency room with history of fever, chills and body aches since yesterday. Patient says that her son has been sick with runny nose but she seems to have gotten the worse of it. No history of vomiting or diarrhea. Patient has not taken anything for fever. In triage temperature was within normal range. Tachycardic. She appears to be in distress. She is otherwise a relatively healthy person. She does have history of epilepsy and takes Keppra. also complains of toothache in her lower right molar area. [facility] Past Medical History Narrative Medical List of her past medical, surgical, social and family history is reviewed from the nursing note. Asthma: No Blood Disorders: No Anxiety: No Depression: No Heart Rhythm Problems: No Cancer: No Cardiovascular Problems: No High Cholesterol: No Chemotherapy: No Chest Pain: Yes Congestive Heart Failure: No COPD: No Diabetes: No Endocrine: No Headaches: Yes Immune Disorder: No Musculoskeletal: No Neurologic: Yes (SEIZURES) Psychiatric: No Reproductive: No Respiratory: No Radiation Therapy: No Seizures: Yes Sleep Apnea: No Thyroid Disease: No ?: Not : 3 Para: 3 Miscarriage: 0 : 0 Past Surgical History Other Surgery: Yes (REMOVAL OF GALLSTONES) Social History Alcohol Use: No Tobacco Use: No Substance Use: No Allergies-Medications (Allergen,Severity, Reaction): Coded Allergies: No Known Allergies (Unverified , 05/07/16) Comments No known drug allergies. Reported Meds & Prescriptions Reported Meds & Active Scripts Active Tamiflu (Oseltamivir Phosphate) 75 Mg Cap 75 Mg PO BID 5 Days Cefuroxime (Cefuroxime Axetil) 500 Mg Tab 500 Mg PO BID 5 Days Azithromycin 250 Mg Tab 250 Mg PO DAILY 3 Days Reported Keppra (Levetriacetam) 500 Mg Tab 500 Mg PO BID Narrative Medication List of her home medications reviewed from the nursing note. Review of Systems Except as stated in HPI: all other systems reviewed are Neg General / Constitutional: Positive: Fever, Chills HENT: Positive: Dental Difficulties Musculoskeletal: Positive: Myalgias Physical Exam Narrative GENERAL: Awake, alert, obese, moderate distress SKIN: Focused skin assessment warm/dry. HEAD: Atraumatic. Normocephalic. EYES: Pupils equal and round. No scleral icterus. No injection or drainage. ENT: No nasal bleeding or discharge. Mucous membranes pink and moist. Dental filling, no swelling of the gums or fluctuance. NECK: Trachea midline. No JVD. CARDIOVASCULAR: Regular rate and rhythm. No murmur appreciated. RESPIRATORY: No accessory muscle use. Clear to auscultation. Breath sounds equal bilaterally. GASTROINTESTINAL: Abdomen soft, non-tender, nondistended. Hepatic and splenic margins not palpable. MUSCULOSKELETAL: No obvious deformities. No clubbing. No cyanosis. No edema. NEUROLOGICAL: Awake and alert. No obvious cranial nerve deficits. Motor grossly within normal limits. Normal speech. PSYCHIATRIC: Appropriate mood and affect; insight and judgment normal. Data Data Last Documented VS Vital Signs Date Time Temp Pulse Resp B/P (MAP) Pulse Ox O2 Delivery O2 Flow Rate FiO2 10/22/17 23:51 10/22/17 18:45 98.2 102 14 98 Orders Orders Influenzae A/B Antigen (10/22/17 18:44) Ibuprofen (Motrin) (10/22/17 22:45) Oseltamivir (Tamiflu) (10/22/17 22:45) Ed Discharge Order (10/22/17 22:46) [facility] Medical Decision Making Medical Screen Exam Complete: Yes Emergency Medical Condition: Yes Medical Record Reviewed: Yes Differential Diagnosis Influenza, viral, caries Narrative Course 10:50 PM influenza is positive. I've given her by mouth Motrin and Tamiflu. She'll be discharged home on Tamiflu prescription. Procedures EKG Prior to Arrival: No Diagnosis Primary Impression: Influenza A Referrals: Primary Care Physician Additional Instructions: Please return to the ER if condition worsens or any other new concerns. Otherwise take the medication as per the prescription direction. Take Motrin/ Tylenol/Advil/ibuprofen for fever as needed. And lots of fluids to stay hydrated. Med/Other Pt SpecificInfo: Prescription(s) given Scripts Oseltamivir (Tamiflu) 75 Mg Cap 75 MG PO BID for Mgmt Viral Infection for 5 Days, #10 CAP 0 Refills Prov: Leilani Caban MD 10/22/17 Disposition: 01 DISCHARGE HOME Condition: Stable Leilani Caban MD Oct 22, 2017 22:19
[2017-10-22] MEDS ORDERED: OSELTAMIVIR PHOSPHATE 75 MG CAP PO ONE (22:45)
[2017-10-22] MEDS ORDERED: IBUPROFEN 600 MG TAB PO ONE (22:45)
[2017-10-22] MEDS ORDERED: OSEL75 PO (22:51)
== END 2017-10-22 23:51 | disposition home or self-care (01) ==
LOC: NEPD 18:32
DX: J10.1 Influenza due to other identified influenza virus with other respiratory manifestations (principal)
CPT/HCPCS: 87804; 99283

== ENCOUNTER 2017-12-21 17:48 | Emergency (ER) | payer MEDICAID ==
[~2017-12-21] VITALS: Ht 170.2 cm; Wt 113.6 kg
[~2017-12-21 17:48] MED LIST changes: +OSEL75 PO
[2017-12-21 17:56] VITALS: BP 144/85; PULSE 69; RESP 18; TEMP 98.3; O2SAT 99
--- NOTE | 2017-12-24 11:32 | PD ---
Physical Exam Date Seen by Provider: Dec 31, 2017 Time Seen by Provider: 17:56 Narrative 32-year-old female presents to the emergency room in for evaluation of headache that started 2 hours prior to arrival. She reports history of similar headaches in the past. Current pain is 8/10. Moderate severity. Data Data Last Documented VS Vital Signs Date Time Temp Pulse Resp B/P (MAP) Pulse Ox O2 Delivery O2 Flow Rate FiO2 12/21/17 17:56 98.3 69 18 144/85 (104) 99 MDM Supervised Visit with VIVI: No Narrative Course 32-year-old female presents to the emergency department for evaluation of headache. Patient was initially seen in triage. She left AGAINST MEDICAL ADVICE before she can be moved to medical bed. Diagnosis Primary Impression: Left against medical advice Patient Instructions: General Instructions Departure Forms: Tests/Procedures Disposition: 07 AGAINST MEDICAL ADVICE Michelle Burciaga Dec 24, 2017 11:32
== END 2017-12-21 23:52 | disposition left against medical advice (07) ==
LOC: NETRI 17:48
DX: R51 Headache (principal)
CPT/HCPCS: 99281

== ENCOUNTER 2018-02-10 18:00 | Observation (INO) | payer MEDICAID ==
[~2018-02-10] VITALS: Ht 170.2 cm; Wt 114.0 kg
[2018-02-10 18:11] VITALS: BP 152/75; PULSE 102; RESP 21; O2SAT 99
[2018-02-10] MEDS ORDERED: SODIUM CHLOR 0.9% 1000 ML INJ 1,000 ML IV ONE ×2 (18:12→20:00)
[2018-02-10] MEDS ORDERED: levETIRAcetam INJ 500 MG in SODIUM CHLORIDE 0.9% INJ 100 ML IV ONE (18:15)
[2018-02-10] MEDS ORDERED: KETOROLAC TROMETHAMINE 30 MG/ML (IVP) VIAL IV PUSH ONE (18:15)
[2018-02-10] MEDS ORDERED: SODIUM CHLORIDE 0.9% FLUSH 10 ML FLUSH IVF PRN (18:15)
--- NOTE | 2018-02-10 18:19 | PD ---
HPI Chief Complaint: Seizure Time Seen by Provider: 18:08 Travel History International Travel<30 days: No Contact w/Intl Traveler<30days: No Traveled to known affect area: No History of Present Illness HPI 32-year-old -[place] female with known seizure disorder followed by Dr. Wheeler, the neurologist in [place]. Patient is currently on Keppra 750 mg twice daily. Patient states she has not had a seizure since last July. She states she has one approximately once a year. She denies any recent illness or stimulants. She denies drug use. She denies alcohol use. She states she does have generalized body aches now and mild headache, as well as a bite to the right lateral tongue. She denies dental injury today. She states no risk that she has her tubes tied. She has no known drug allergies. PFSH Past Medical History Asthma: No Blood Disorders: No Anxiety: No Depression: No Heart Rhythm Problems: No Cancer: No Cardiovascular Problems: No High Cholesterol: No Chemotherapy: No Chest Pain: Yes Congestive Heart Failure: No COPD: No Diabetes: No Endocrine: No Headaches: Yes Immune Disorder: No Musculoskeletal: No Neurologic: Yes (SEIZURES) Psychiatric: No Reproductive: No Respiratory: No Radiation Therapy: No Seizures: Yes Sleep Apnea: No Thyroid Disease: No : 3 Para: 3 Miscarriage: 0 : 0 Past Surgical History Other Surgery: Yes (REMOVAL OF GALLSTONES) Social History Alcohol Use: No Tobacco Use: No Substance Use: No Allergies-Medications (Allergen,Severity, Reaction): Coded Allergies: No Known Allergies (Unverified Adverse Reaction, Unknown, 02/10/18) Reported Meds & Prescriptions Reported Meds & Active Scripts Active Reported Keppra (Levetiracetam) 500 Mg Tab 500 Mg BID Review of Systems Except as stated in HPI: all other systems reviewed are Neg General / Constitutional: No: Fever Eyes: No: Visual changes HENT: Positive: Headaches, Other (Small laceration to the right lateral tongue. ) Cardiovascular: No: Chest Pain or Discomfort Respiratory: No: Shortness of Breath Gastrointestinal: No: Abdominal Pain Genitourinary: No: Dysuria Musculoskeletal: Positive: Myalgias, No: Pain Skin: No Rash Neurologic: No: Weakness Psychiatric: No: Depression Endocrine: No: Polydipsia Hematologic/Lymphatic: No: Easy Bruising Physical Exam Narrative GENERAL: Patient appears postictal and in mild distress SKIN: Warm and dry. Normal color. Normal turgor. No obvious signs of trauma HEAD: Atraumatic. Normocephalic. Nontender with palpation. EYES: Pupils equal and round. No scleral icterus. No injection or drainage. ENT: No nasal bleeding or discharge. Mucous membranes pink and moist. Patient has a superficial bite to the right lateral tongue, without need for closure. There is no significant bleeding. No dental injury is noted. Pharynx is clear. Airways patent. NECK: Trachea midline. No bony tenderness or step-off. Patient has generalized soft tissue tenderness. Range of motion is full and supple. CARDIOVASCULAR: Regular rate and rhythm. RESPIRATORY: No accessory muscle use. Clear to auscultation. Breath sounds equal bilaterally. GASTROINTESTINAL: Abdomen soft, non-tender, nondistended. Hepatic and splenic margins not palpable. MUSCULOSKELETAL: Extremities without clubbing, cyanosis, or edema. No obvious deformities. Patient is generalized muscle tenderness otherwise no significant findings. NEUROLOGICAL: Awake and alert. No obvious cranial nerve deficits. Motor grossly within normal limits. Five out of 5 muscle strength in the arms and legs. Normal speech. PSYCHIATRIC: Appropriate mood and affect; insight and judgment normal. Data Data Last Documented VS Vital Signs Date Time Temp Pulse Resp B/P (MAP) Pulse Ox O2 Delivery O2 Flow Rate FiO2 02/10/18 18:48 92 Nasal Cannula 6.00 02/10/18 18:45 132 155/77 (103) 02/10/18 18:11 21 Orders Orders Complete Blood Count With Diff (02/10/18 18:12) Drug Screen, Random Urine (02/10/18 18:12) Blood Glucose (02/10/18 18:12) Ecg Monitoring (02/10/18 18:12) Iv Access Insert/Monitor (02/10/18 18:12) Oximetry (02/10/18 18:12) Comprehensive Metabolic Panel (02/10/18 18:12) Sodium Chlor 0.9% 1000 Ml Inj (Ns 1000 M (02/10/18 18:12) Sodium Chloride 0.9% Flush (Ns Flush) (02/10/18 18:15) Urinalysis - C+S If Indicated (02/10/18 18:12) Ketorolac Inj (Toradol Inj) (02/10/18 18:15) Levetiracetam Inj (Keppra Inj) (02/10/18 18:30) Lorazepam Inj (Ativan Inj) (02/10/18 18:34) Lorazepam Inj (Ativan Inj) (02/10/18 18:45) Ct Brain W/O Iv Contrast(Rout) (02/10/18 18:38) Lorazepam Inj (Ativan Inj) (02/10/18 18:39) Lorazepam Inj (Ativan Inj) (02/10/18 18:45) Sodium Chlor 0.9% 1000 Ml Inj (Ns 1000 M (02/10/18 20:00) Labs Laboratory Tests Test 02/10/18 18:30 Blood Urea Nitrogen 12 MG/DL Creatinine 0.92 MG/DL Random Glucose 117 MG/DL Total Protein 8.9 GM/DL Albumin 3.5 GM/DL Calcium Level 9.1 MG/DL Alkaline Phosphatase 113 U/L Aspartate Amino Transf (AST/SGOT) 36 U/L Alanine Aminotransferase (ALT/SGPT) 43 U/L Total Bilirubin 0.5 MG/DL Sodium Level 137 MEQ/L Potassium Level 3.9 MEQ/L Chloride Level 105 MEQ/L Carbon Dioxide Level 19.9 MEQ/L Anion Gap 12 MEQ/L Estimat Glomerular Filtration Rate 87 ML/MIN MDM Medical Decision Making Medical Screen Exam Complete: Yes Emergency Medical Condition: Yes Medical Record Reviewed: Yes Differential Diagnosis Recurrent seizure. Postictal state. Muscle strain. Right tongue laceration Narrative Course Patient appears medically stable at time of exam. Labs ordered including CBC, CMP, urine drug screen, and urinalysis. IV access is obtained and the patient is given 30 mg Toradol IV as well as 1000 mL of normal saline bolus, as well as 1000 mg Keppra IV. 1830 hours patient has recurrent seizure. She is given 2 mg lorazepam with an additional 2 mg lorazepam to break the seizure Patient is seen with Dr. Leon at this time. CT is ordered. EKG is ordered and shows sinus tachycardia at 110 bpm. This was right after her seizure. 2000 hrs. patient remains postictal, but alert and oriented. Labs show a chemistry with a carbon dioxide of 19.9, GFR is 87, glucose 117, protein 8.9 otherwise unremarkable. Diagnosis Primary Impression: Epilepsy with status epilepticus Qualified Codes: G40.911 - Epilepsy, unspecified, intractable, with status epilepticus Additional Impression: Seizure disorder Admitting Information Admitting Physician Requests: Admit Condition: Stable [place] February 10, 2018 18:18
[2018-02-10] MEDS ORDERED: levETIRAcetam INJ 100 ML IV ONE (18:30)
[2018-02-10] MEDS ORDERED: LEVE500 (18:31)
[2018-02-10] MEDS ORDERED: LORazepam 2 MG/ML VIAL ONE ×2 (18:34→18:39)
[2018-02-10 18:45] VITALS: BP 155/77; PULSE 132; O2SAT 97
[2018-02-10] MEDS ORDERED: LORazepam 2 MG/ML VIAL IV PUSH ONE ×2 (18:45)
[2018-02-10 18:48] VITALS: O2SAT 92
--- NOTE | 2018-02-10 18:49 | PD ---
Data Data Last Documented VS Vital Signs Date Time Temp Pulse Resp B/P (MAP) Pulse Ox O2 Delivery O2 Flow Rate FiO2 02/10/18 18:11 102 21 152/75 (100) 99 Orders Orders Complete Blood Count With Diff (02/10/18 18:12) Drug Screen, Random Urine (02/10/18 18:12) Blood Glucose (02/10/18 18:12) Ecg Monitoring (02/10/18 18:12) Iv Access Insert/Monitor (02/10/18 18:12) Oximetry (02/10/18 18:12) Comprehensive Metabolic Panel (02/10/18 18:12) Sodium Chlor 0.9% 1000 Ml Inj (Ns 1000 M (02/10/18 18:12) Sodium Chloride 0.9% Flush (Ns Flush) (02/10/18 18:15) Urinalysis - C+S If Indicated (02/10/18 18:12) Levetiracetam Inj (Keppra Inj) (02/10/18 18:15) Ketorolac Inj (Toradol Inj) (02/10/18 18:15) Levetiracetam Inj (Keppra Inj) (02/10/18 18:30) Lorazepam Inj (Ativan Inj) (02/10/18 18:34) Lorazepam Inj (Ativan Inj) (02/10/18 18:45) Ct Brain W/O Iv Contrast(Rout) (02/10/18 18:38) Lorazepam Inj (Ativan Inj) (02/10/18 18:39) Lorazepam Inj (Ativan Inj) (02/10/18 18:45) MDM Medical Record Reviewed: Yes Supervised Visit with VIVI: Yes Narrative Course I, Dr. Leon, have reviewed the advance practice practitioner's documentation and am in agreement, met with the patient face to face, made the diagnosis, and the medical decision making was done by me. *My assessment and Findings: Patient is a 32-year-old female with history of seizure disorder currently being followed by Dr. Wheeler in [facility]. Patient reports that prior to coming to the emergency room, she had a witnessed seizure. Patient has been compliant with her medications as she does take Keppra 750 mg twice a day. Upon presentation to the ER patient had a prolonged generalized seizure episode requiring a total of 4 mg of Ativan. 1 g of IV Keppra was ordered. Lab work including CT pending. Patient will require admission to the hospital for status epilepticus. Critical Care Narrative Aggregate critical care time was 30 minutes. Time to perform other separately billable procedures was not included in the critical care time. My time did not include minutes spent treating any other patients simultaneously or on activities that did not directly contribute to the patient's treatment. The services I provided to this patient were to treat and/or prevent clinically significant deterioration that could result in: , decompensation, deterioration I provided critical care services requiring my management, as noted below: Chart data review, documentation time, medication orders and management, vital sign assessments/reviewing monitor data, ordering and reviewing lab tests, ordering and interpreting/reviewing x-rays and diagnostic studies, care of the patient and discussion of the patient with the admitting physicians. Diagnosis Primary Impression: Epilepsy with status epilepticus Qualified Codes: G40.911 - Epilepsy, unspecified, intractable, with status epilepticus Admitting Information Admitting Physician Requests: Admit Condition: Stable Gissel Leon DO February 10, 2018 18:49
--- NOTE | 2018-02-10 19:15 | PD ---
Physical Exam Date Seen by Provider: February 10, 2018 Time Seen by Provider: 19:12 Narrative Accepted in transfer of care from Dr. Leon GENERAL: Well-developed well-nourished female postictal with soft restraints in place presently not responding to verbal stimulus status post recent dose of Ativan 2 mg IV SKIN: Warm and dry. HEAD: Normocephalic. EYES: No scleral icterus. No injection or drainage. NECK: Supple, trachea midline. No JVD or lymphadenopathy. CARDIOVASCULAR: Increased Regular rate and rhythm without murmurs, gallops, or rubs. RESPIRATORY: Breath sounds equal bilaterally. No accessory muscle use. Data Data Last Documented VS Vital Signs Date Time Temp Pulse Resp B/P (MAP) Pulse Ox O2 Delivery O2 Flow Rate FiO2 02/10/18 20:21 132 18 146/67 (93) 100 Room Air 02/10/18 18:48 6.00 Orders Orders Complete Blood Count With Diff (02/10/18 18:12) Drug Screen, Random Urine (02/10/18 18:12) Blood Glucose (02/10/18 18:12) Ecg Monitoring (02/10/18 18:12) Iv Access Insert/Monitor (02/10/18 18:12) Oximetry (02/10/18 18:12) Comprehensive Metabolic Panel (02/10/18 18:12) Sodium Chlor 0.9% 1000 Ml Inj (Ns 1000 M (02/10/18 18:12) Sodium Chloride 0.9% Flush (Ns Flush) (02/10/18 18:15) Urinalysis - C+S If Indicated (02/10/18 18:12) Ketorolac Inj (Toradol Inj) (02/10/18 18:15) Levetiracetam Inj (Keppra Inj) (02/10/18 18:30) Lorazepam Inj (Ativan Inj) (02/10/18 18:34) Lorazepam Inj (Ativan Inj) (02/10/18 18:45) Ct Brain W/O Iv Contrast(Rout) (02/10/18 18:38) Lorazepam Inj (Ativan Inj) (02/10/18 18:39) Lorazepam Inj (Ativan Inj) (02/10/18 18:45) Sodium Chlor 0.9% 1000 Ml Inj (Ns 1000 M (02/10/18 20:00) Labs Laboratory Tests Test 02/10/18 18:30 02/10/18 20:10 Blood Urea Nitrogen 12 MG/DL Creatinine 0.92 MG/DL Random Glucose 117 MG/DL Total Protein 8.9 GM/DL Albumin 3.5 GM/DL Calcium Level 9.1 MG/DL Alkaline Phosphatase 113 U/L Aspartate Amino Transf (AST/SGOT) 36 U/L Alanine Aminotransferase (ALT/SGPT) 43 U/L Total Bilirubin 0.5 MG/DL Sodium Level 137 MEQ/L Potassium Level 3.9 MEQ/L Chloride Level 105 MEQ/L Carbon Dioxide Level 19.9 MEQ/L Anion Gap 12 MEQ/L Estimat Glomerular Filtration Rate 87 ML/MIN White Blood Count 9.7 TH/MM3 Red Blood Count 4.40 MIL/MM3 Hemoglobin 12.3 GM/DL Hematocrit 36.6 % Mean Corpuscular Volume 83.2 FL Mean Corpuscular Hemoglobin 28.0 PG Mean Corpuscular Hemoglobin Concent 33.6 % Red Cell Distribution Width 13.4 % Platelet Count 247 TH/MM3 Mean Platelet Volume 8.8 FL Neutrophils (%) (Auto) 78.5 % Lymphocytes (%) (Auto) 10.8 % Monocytes (%) (Auto) 10.3 % Eosinophils (%) (Auto) 0.2 % Basophils (%) (Auto) 0.2 % Neutrophils # (Auto) 7.6 TH/MM3 Lymphocytes # (Auto) 1.0 TH/MM3 Monocytes # (Auto) 1.0 TH/MM3 Eosinophils # (Auto) 0.0 TH/MM3 Basophils # (Auto) 0.0 TH/MM3 CBC Comment DIFF FINAL Differential Comment [facility] Medical Record Reviewed: Yes Supervised Visit with VIVI: No Differential Diagnosis Accepted in transfer of care from Dr. Leon; please refer to her dictation Narrative Course Accepted in transfer of care from Dr. Leon; follow up CT/labs and admit for status epilepticus --requiring a total of Ativan 4 mg IV since arrival to the emergency department as well as bolus of Keppra 500 mg IV. Patient is currently postictal after recent administration of IV Ativan. Patient is also noted to be tachycardic; bolus of normal saline 1 L administered, at 7:46 pm. @ 20:30 awake responds to her name and reports feels improved @ 2100 patient discussed with Laura LUNDBERG via PA --> OBS Diagnosis Primary Impression: Epilepsy with status epilepticus Qualified Codes: G40.911 - Epilepsy, unspecified, intractable, with status epilepticus Admitting Information Admitting Physician Requests: Admit Condition: Stable Dee Arzola MD February 10, 2018 19:15
[2018-02-10 19:37] LABS: ALBUMIN 3.5 GM/DL (3.4-5.0); AST (GOT) 36 U/L (15-37); BICARBONATE 19.9 MEQ/L (21.0-32.0); BLOOD UREA NITROGEN 12 MG/DL (7-18); CALCIUM 9.1 MG/DL (8.5-10.1); CHLORIDE 105 MEQ/L (98-107); CREATININE 0.92 MG/DL (0.50-1.00); GLOMERULAR FILTRATION RATE 87 ML/MIN (>89); GLUCOSE,RANDOM 117 MG/DL (74-106); SODIUM (NA) 137 MEQ/L (136-145)
[2018-02-10 19:39] LABS: ALT (GPT) 43 U/L (10-53)
[2018-02-10 19:41] LABS: ALKALINE PHOSPHATASE 113 U/L (45-117); TOTAL BILIRUBIN ADULT 0.5 MG/DL (0.2-1.0); TOTAL PROTEIN 8.9 GM/DL (6.4-8.2)
[2018-02-10 20:21] VITALS: BP 146/67; PULSE 132; RESP 18; O2SAT 100
[2018-02-10 20:31] LABS: AUTOMATED NEUTROPHIL # 7.6 TH/MM3 (1.8-7.7); BASOPHIL % 0.2 % (0.0-2.0); EOSINOPHIL % 0.2 % (0.0-4.0); HEMATOCRIT 36.6 % (35.0-46.0); HEMOGLOBIN 12.3 GM/DL (11.6-15.3); LYMPH % 10.8 % (9.0-44.0); MEAN CELL VOLUME 83.2 FL (80.0-100.0); MEAN CORPUSCULAR HGB CONC 33.6 % (32.0-36.0); MEAN PLATELET VOLUME 8.8 FL (7.0-11.0); MONO % 10.3 % (0.0-8.0); NEUT % 78.5 % (16.0-70.0); PLATELET COUNT 247 TH/MM3 (150-450); RED CELL DISTRIBUTION WIDTH 13.4 % (11.6-17.2); WHITE BLOOD COUNT 9.7 TH/MM3 (4.0-11.0)
--- NOTE | 2018-02-10 20:39 | RADRPT ---
EXAM DATE: 02/10/2018 8:36 PM EDT AGE/SEX: 32 years / Female INDICATIONS: Seizure CLINICAL DATA: This is the patient's initial encounter. Patient reports that signs and symptoms have been present for 1 day and indicates a pain score of 0/10. MEDICAL/SURGICAL HISTORY: . Seizure Tubal ligation. RADIATION DOSE: 56.35 CTDI (mGy) COMPARISON: No prior [facility] exams available for comparison. TECHNIQUE: CT of the head without contrast. Using automated exposure control and adjustment of the mA and/or kV according to patient size, radiation dose was kept as low as reasonably achievable to ob tain optimal diagnostic quality images. FINDINGS: Cerebrum: The ventricles are normal for age. No evidence of midline shift, mass lesion, hemorrhage o r acute infarction. No extraaxial fluid collections are seen. Posterior Fossa: The cerebellum and brainstem are intact. The 4th ventricle is midline. The cerebe llopontine angle is unremarkable. Extracranial: The visualized portion of the orbits is intact. Skull: The calvaria is intact. No evidence of skull fracture. CONCLUSION: 1. No acute intracranial abnormality. Electronically signed by: George Sorenson MD 02/10/2018 8:37 PM EDT
[2018-02-10 21:23] VITALS: BP 146/67; PULSE 116; RESP 16; O2SAT 98
[2018-02-11] MEDS ORDERED: ACETAMINOPHEN 325 MG TAB PO PRN (00:30)
[2018-02-11] MEDS ORDERED: BISACODYL 10 MG SUPP RECTAL PRN (00:30)
[2018-02-11] MEDS ORDERED: LORazepam 2 MG/ML VIAL IV PUSH PRN (00:30)
[2018-02-11] MEDS ORDERED: ONDANSETRON HCL 4 MG/2 ML VIAL IVP PRN (00:30)
[2018-02-11] MEDS ORDERED: LACTULOSE SYRUP 20 GM/30 ML CUP PO PRN (00:30)
[2018-02-11] MEDS ORDERED: SODIUM CHLORIDE 0.9% FLUSH 10 ML FLUSH IV FLUSH PRN (00:30)
[2018-02-11] MEDS ORDERED: MAGNESIUM HYDROXIDE SUSP 30 ML CUP PO PRN (00:30)
[2018-02-11] MEDS ORDERED: SENNOSIDES 8.6 MG TAB PO PRN (00:30)
[2018-02-11] MEDS ORDERED: NALOXONE HCL 0.4 MG/ML AMP IV PUSH PRN (00:30)
--- NOTE | 2018-02-11 01:04 | HHI.HP ---
[facility] Service [facility] Primary Care Physician Unknown Admission Diagnosis Seizure Diagnoses: Travel History International Travel<30 Days: No Contact w/Intl Traveler <30 Da: No Traveled to Known Affected Are: No History of Present Illness 32-year-old female with known seizure disorder presents to the emergency department for evaluation of a seizure. During her evaluation in the emergency department the patient had another witnessed generalized clonic tonic seizure requiring multiple doses of Ativan. She sustained a tongue laceration during the event. She is followed by Dr. Wheeler in [place] and is currently compliant with Keppra 750 mg twice daily. She reports compliance with the medication and denies any foreign substance ingestions. She states her last seizure was . Denies any bowel or bladder incontinence. No fevers/chills. No chest pain. No shortness of breath. No abdominal pain. No nausea/vomiting/ diarrhea. No lateralizing signs/symptoms. Review of Systems Except as stated in HPI: all other systems reviewed are Neg Past Family Social History Past Medical History Seizure disorder Past Surgical History None Reported Medications Reported Meds & Active Scripts Active Reported Keppra (Levetiracetam) 500 Mg Tab 500 Mg BID Allergies: Coded Allergies: No Known Allergies (Unverified Adverse Reaction, Unknown, 02/10/18) Family History Negative for CAD/DM Social History Occasional alcohol. Denies tobacco and illicit drugs. Physical Exam Vital Signs Vital Signs Date Time Temp Pulse Resp B/P (MAP) Pulse Ox O2 Delivery O2 Flow Rate FiO2 02/10/18 21:23 116 16 146/67 (93) 98 Room Air 02/10/18 20:21 132 18 146/67 (93) 100 Room Air 02/10/18 18:48 92 Nasal Cannula 6.00 02/10/18 18:45 132 155/77 (103) 97 02/10/18 18:11 98 Room Air 02/10/18 18:11 102 21 152/75 (100) 99 Physical Exam GENERAL: -[place] female lying in bed SKIN: No rashes, ecchymoses or lesions. Cool and dry. HEAD: Atraumatic. Normocephalic. No temporal or scalp tenderness. EYES: Pupils equal round and reactive. Extraocular motions intact. No scleral icterus. No injection or drainage. ENT: Nose without bleeding, purulent drainage or septal hematoma. Throat without erythema, tonsillar hypertrophy or exudate. Uvula midline. Airway patent. Tongue laceration. NECK: Trachea midline. No JVD or lymphadenopathy. Supple, nontender, no meningeal signs. CARDIOVASCULAR: Regular rate and rhythm without murmurs, gallops, or rubs. RESPIRATORY: Clear to auscultation. Breath sounds equal bilaterally. No wheezes , rales, or rhonchi. GASTROINTESTINAL: Abdomen soft, non-tender, nondistended. No hepato-splenomegaly , or palpable masses. No guarding. MUSCULOSKELETAL: Extremities without clubbing, cyanosis, or edema. No joint tenderness, effusion, or edema noted. No calf tenderness. NEUROLOGICAL: Awake and alert. Cranial nerves II through XII intact. Motor and sensory grossly within normal limits. Normal speech. Laboratory Laboratory Tests Test 02/10/18 18:30 02/10/18 20:10 Blood Urea Nitrogen 12 Creatinine 0.92 Random Glucose 117 Total Protein 8.9 Albumin 3.5 Calcium Level 9.1 Alkaline Phosphatase 113 Aspartate Amino Transf (AST/SGOT) 36 Alanine Aminotransferase (ALT/SGPT) 43 Total Bilirubin 0.5 Sodium Level 137 Potassium Level 3.9 Chloride Level 105 Carbon Dioxide Level 19.9 Anion Gap 12 Estimat Glomerular Filtration Rate 87 White Blood Count 9.7 Red Blood Count 4.40 Hemoglobin 12.3 Hematocrit 36.6 Mean Corpuscular Volume 83.2 Mean Corpuscular Hemoglobin 28.0 Mean Corpuscular Hemoglobin Concent 33.6 Red Cell Distribution Width 13.4 Platelet Count 247 Mean Platelet Volume 8.8 Neutrophils (%) (Auto) 78.5 Lymphocytes (%) (Auto) 10.8 Monocytes (%) (Auto) 10.3 Eosinophils (%) (Auto) 0.2 Basophils (%) (Auto) 0.2 Neutrophils # (Auto) 7.6 Lymphocytes # (Auto) 1.0 Monocytes # (Auto) 1.0 Eosinophils # (Auto) 0.0 Basophils # (Auto) 0.0 CBC Comment DIFF FINAL Differential Comment Result Diagram: 02/10/18200902/10/18 1830 Caprini VTE Risk Assessment Caprini VTE Risk Assessment: No/Low Risk (score <= 1) Caprini Risk Assessment Model Point Value = 1 Point Value = 2 Point Value = 3 Point Value = 5 Age 41-60 Minor surgery BMI > 25 kg/m2 Swollen legs Varicose veins or History of unexplained or recurrent spontaneous Oral contraceptives or hormone replacement Sepsis (< 1 month) Serious lung disease, including pneumonia (< 1 month) Abnormal pulmonary function Acute myocardial infarction Congestive heart failure (< 1 month) History of inflammatory bowel disease Medical patient at bed rest Age 61-74 Arthroscopic surgery Major open surgery (> 45 min) Laparoscopic surgery (> 45 min) Malignancy Confined to bed (> 72 hours) Immobilizing plaster cast Central venous access Age >= 75 History of VTE Family history of VTE Factor V Leiden Prothrombin [id number] Lupus anticoagulant Anticardiolipin antibodies Elevated serum homocysteine Heparin-induced thrombocytopenia Other congenital or acquired thrombophilia Stroke (< 1 month) Elective arthroplasty Hip, pelvis, or leg fracture Acute spinal cord injury (< 1 month) Prophylaxis Regimen Total Risk Factor Score Risk Level Prophylaxis Regimen 0-1 Low Early ambulation 2 Moderate Order ONE of the following: *Sequential Compression Device (SCD) *Heparin 5000 units SQ BID 3-4 Higher Order ONE of the following medications: *Heparin 5000 units SQ TID *Enoxaparin/Lovenox 40 mg SQ daily (WT < 150 kg, CrCl > 30 mL/min) *Enoxaparin/Lovenox 30 mg SQ daily (WT < 150 kg, CrCl > 10-29 mL/min) *Enoxaparin/Lovenox 30 mg SQ BID (WT < 150 kg, CrCl > 30 mL/min) AND/OR *Sequential Compression Device (SCD) 5 or more Highest Order ONE of the following medications: *Heparin 5000 units SQ TID (Preferred with Epidurals) *Enoxaparin/Lovenox 40 mg SQ daily (WT < 150 kg, CrCl > 30 mL/min) *Enoxaparin/Lovenox 30 mg SQ daily (WT < 150 kg, CrCl > 10-29 mL/min) *Enoxaparin/Lovenox 30 mg SQ BID (WT < 150 kg, CrCl > 30 mL/min) AND *Sequential Compression Device (SCD) Assessment and Plan Assessment and Plan Assessment/plan: 1. Seizure disorder/status epilepticus Status post IV Ativan with subsequent resolution Loading dose of Keppra given in the emergency department Continue home Keppra, level pending Urine drug screen pending Follow-up with neurologist as outpatient if no further seizures FEN Regular diet Electrolytes: Monitor and replete as needed Gissel Youssef MD February 11, 2018 01:04
[2018-02-11 01:30] VITALS: BP 129/74; PULSE 122; RESP 17; TEMP 100.2; O2SAT 93
[2018-02-11] MEDS ORDERED: IBUP1TAB7 PO (01:36)
[2018-02-11] MEDS ORDERED: IBUPROFEN 800 MG TAB PO PRN (02:15)
[2018-02-11 04:00] VITALS: BP 139/78; PULSE 97; RESP 17; TEMP 99.1; O2SAT 97
[2018-02-11 05:52] LABS: BACTERIA, URINE OCC /hpf; BILIRUBIN, URINE NEG (NEG); BLOOD, URINE NEG (NEG); GLUCOSE,URINE NEG (NEG); KETONE, URINE NEG (NEG); MUCUS URINE FEW /lpf (OCC); NITRITE,URINE NEG (NEG); PH, URINE 5.5 (5.0-8.5); SQUAMOUS EPITHELIAL CELL URINE 1 /hpf (0-5); URINE COLOR YELLOW (YELLW/STRAW); URINE LEUKOCYTE ESTERASE NEG (NEG)
[2018-02-11 07:37] VITALS: BP 121/62; PULSE 90; RESP 18; TEMP 98.8; O2SAT 94
[2018-02-11] MEDS ORDERED: KEPP10002 PO (07:56)
[2018-02-11] MEDS ORDERED: levETIRAcetam 500 MG TAB PO SCH (09:00)
[2018-02-11] MEDS: levETIRAcetam 500 MG TAB PO SCH ×2 (09:25→20:34)
[2018-02-11] MEDS: DOCUSATE SODIUM 50 MG/SENNA 8.6 MG TAB PO SCH ×2 (09:25→20:34)
[2018-02-11] MEDS: SODIUM CHLORIDE 0.9% FLUSH 10 ML FLUSH IV FLUSH SCH ×2 (09:26→20:34)
--- NOTE | 2018-02-11 09:31 | HHI.PR ---
Subjective Remarks Follow-up for seizures. Patient was seen around 8:40 AM. The patient is awoken from her sleep. She complains of mild diffuse headache. Denies any other medical complaints including no dizziness, neck pain, chest pain, shortness of breath, or abdominal complaints. No further seizures reported since she was in the ER last night. She states she has been on Keppra 1500 mg twice a day for at least the past 2 months. She has never missed any doses or ran out of any medications. She follows with neurologist Dr. Wheeler in [place]. Discussed seizure precautions and no driving for at least 6 months, patient verbalized understanding. Objective Vitals Vital Signs Date Time Temp Pulse Resp B/P (MAP) Pulse Ox O2 Delivery O2 Flow Rate FiO2 02/11/18 07:37 98.8 90 18 121/62 (81) 94 02/11/18 04:00 99.1 97 17 139/78 (98) 97 02/11/18 01:30 100.2 122 17 129/74 (92) 93 02/10/18 21:23 116 16 146/67 (93) 98 Room Air 02/10/18 20:21 132 18 146/67 (93) 100 Room Air 02/10/18 18:48 92 Nasal Cannula 6.00 02/10/18 18:45 132 155/77 (103) 97 02/10/18 18:11 98 Room Air 02/10/18 18:11 102 21 152/75 (100) 99 Result Diagram: 02/10/18200902/10/181829 Imaging Last Impressions Head CT 02/10/18 1838 Signed Impressions: CONCLUSION: 1. No acute intracranial abnormality. Objective Remarks GENERAL: Well-nourished, well-developed pleasant young AA female patient in [facility]. SKIN: Warm and dry. No rash. HEENT: Normocephalic. Atraumatic. Pupils equal and round. Mucous membranes pink and moist. NECK: Supple. Trachea midline. CARDIOVASCULAR: Regular rate and rhythm. No murmur appreciated. RESPIRATORY: No accessory muscle use. Clear to auscultation. Breath sounds equal bilaterally. GASTROINTESTINAL: Abdomen soft, non-tender, nondistended. Normoactive bowel sounds x4. MUSCULOSKELETAL: No obvious deformities. Extremities without clubbing, cyanosis , or edema. NEUROLOGICAL: Awake and alert. No obvious cranial nerve deficits. Motor grossly within normal limits. Moving all extremities spontaneously. Normal speech. PSYCHIATRIC: Appropriate mood and affect; insight and judgment normal. Medications and IVs Current Medications Medications (Trade) Dose Ordered Sig/Yvonne Route Start Time Stop Time Status Last Admin (NS Flush) 2 ml UNSCH PRN IV FLUSH 02/11/18 00:30 (NS Flush) 2 ml BID IV FLUSH 02/11/18 09:00 02/11/18 09:26 (Tylenol) 650 mg Q4H PRN PO 02/11/18 00:30 (Zofran Inj) 4 mg Q6H PRN IVP 02/11/18 00:30 (Narcan Inj) 0.4 mg UNSCH PRN IV PUSH 02/11/18 00:30 (Heaven-Colace) 1 tab BID PO 02/11/18 09:00 02/11/18 09:25 (Milk Of Magnesia Liq) 30 ml Q12H PRN PO 02/11/18 00:30 (Senokot) 17.2 mg Q12H PRN PO 02/11/18 00:30 (Dulcolax Supp) 10 mg DAILY PRN RECTAL 02/11/18 00:30 (Lactulose Liq) 30 ml DAILY PRN PO 02/11/18 00:30 (Motrin) 800 mg Q8HR PRN PO 02/11/18 02:15 02/11/18 09:27 (Keppra) 1,500 mg BID PO 02/11/18 09:00 02/11/18 09:25 A/P Assessment and Plan 32-year-old female with known seizure disorder on Keppra presents to the emergency department for evaluation of a seizure. Seizure disorder with status epilepticus: Patient with a seizure prior to arrival, recurrent seizure while in the ED, s/p IV Ativan with subsequent resolution -Head CT reviewed, no acute findings -UDS negative -Loading dose of Keppra given in the emergency department -Continue patient's home Keppra 1500mg bid, level pending -Check EEG -Consult neurology as patient is having breakthrough seizures despite compliance with high dose keppra Headache: likely secondary to seizure -continue tylenol prn, ibuprofen prn -monitor for improvement DVT Prophylaxis: teds/SCDs Discharge Planning Awaiting EEG results and neurology consult. Olena Contreras PA-C February 11, 2018 9:31 am
[2018-02-11 12:14] VITALS: BP 117/56; PULSE 95; RESP 18; TEMP 97.4; O2SAT 98
--- NOTE | 2018-02-11 14:28 | MG ---
cc: Margi Zimmer MD EEG NUMBER [id number] REFERRING: GWENDOLYN Contreras. INDICATION: In room F65 with hyperventilation, photic stimulation. CT negative. EEG is awake, drowsy, asleep. Evaluation for seizure. Had another witnessed seizure in the ER, requiring multiple doses of Ativan. A 32-year-old woman with history of seizures, headaches, alcohol, caffeine use, on Keppra and Motrin. DESCRIPTION OF RECORD: Quite a bit of artifact noted from the beginning portion of the recording. Photic stimulation did elicit a driving response. Overall, when artifact was taken out, seems to be a normal alpha rhythm 8 Hz. Hyperventilation without any epileptic activity. A lot of EKG artifact, but when the patient is awake it seems that she has normal background activity. No epileptic activity noted. Clinical correlation. Margi Zimmer MD DF/TL , 02:17 PM , 02:27 PM
--- NOTE | 2018-02-11 15:01 | EKG ---
Date Performed: 02/10/2018 Time Performed: 18:17:12 PTAGE: 32 years EKG: SINUS TACHYCARDIA POSSIBLE LEFT ATRIAL ENLARGEMENT POSSIBLE LEFT VENTRICULAR HYPERTROPHY NO NSPECIFIC T-WAVE ABNORMALITY ABNORMAL ECG WARNING: DATA QUALITY MAY AFFECT INTERPRETATION Since the PREVIOUS TRACING , no significant change noted PREVIOUS TRACIN06/09/2017 13.59 DOCTOR: Black Hines Interpretating Date/Time 02/11/2018 15:00:45
[2018-02-11 16:22] VITALS: BP 148/64; PULSE 99; RESP 18; TEMP 98.3; O2SAT 95
[2018-02-11 19:40] VITALS: BP 121/60; PULSE 90; RESP 16; TEMP 98.3; O2SAT 94
--- NOTE | 2018-02-11 19:56 | MB ---
cc: Ran Doherty MD, PhD Ran Doherty MD PhD DATE: 02/11/2018 REASON FOR CONSULTATION: Breakthrough seizure. HISTORY OF PRESENT ILLNESS: Ms. Hawkins is a very nice 32-year-old female who has had seizures since 2011 of unknown cause. These are grand mal seizures where she loses with generalized tonic-clonic activity. She has been under the care of Dr. Lazaro in [place], currently taking Keppra. She states she takes 750 mg. She takes 2 b.i.d. She presents to the hospital with recurrent generalized seizure. In the ER, she had a recurrent witnessed generalized tonic-clonic seizure treated with several doses of Ativan. PAST MEDICAL HISTORY: Seizure disorder. MEDICATIONS: She takes Keppra, she states 750 mg 2 tablets b.i.d. ALLERGIES: NONE KNOWN. NEUROLOGICAL EXAMINATION. VITAL SIGNS: Blood pressure is 148/64, pulse 99, respiratory rate 18, temperature 98.3 degrees. Higher cortical functions are normal. Cranial nerves 2-12 are normal. Motor exam had normal strength and tone of all groups. There is no drift. Reflexes are symmetric. IMAGING STUDIES: CT of the brain normal. LABORATORY DATA: White count 9700, hemoglobin 12.3, hematocrit 36.6%, platelet count 247,000. Sodium is 137, potassium 3.9, chloride 105, CO2 of 19.9, BUN is 12, creatinine 0.92, GFR is 87, AST 36, ALT 43. Tox screen is negative. UA: pH is 5.5, specific gravity 1.010. IMPRESSION: Breakthrough seizures. She is already at a maximum dose of Keppra 1500 mg b.i.d. RECOMMENDATIONS: Start Trileptal. We will institute a dose of 300 mg b.i.d. Would recommend gradually titrating the dose over several weeks to 600 mg b.i.d. When stable on Trileptal, could then consider tapering off Keppra. We will obtain an MRI of the brain. If the patient is seizure free tomorrow and tolerating Trileptal, I feel that it is safe for discharge to followup with Dr. Lazaro in [place]. Ran Doherty MD, PhD SAYDA/ , 07:41 PM , 07:55 PM
[2018-02-11] MEDS: OXcarbazepine 300 MG TAB PO SCH (21:27)
[2018-02-12 00:39] VITALS: BP 117/59; PULSE 75; RESP 16; TEMP 98.4; O2SAT 97
[2018-02-12 04:25] VITALS: BP 126/81; PULSE 93; RESP 16; TEMP 98.4; O2SAT 96
[2018-02-12 06:38] LABS: BICARBONATE 20.3 MEQ/L (21.0-32.0); CALCIUM 8.4 MG/DL (8.5-10.1); CREATININE 0.71 MG/DL (0.50-1.00)
[2018-02-12 07:41] VITALS: BP 118/57; PULSE 69; RESP 18; TEMP 98.5; O2SAT 95
[2018-02-12 09:27] LABS: AUTOMATED NEUTROPHIL # 2.9 TH/MM3 (1.8-7.7); BASOPHIL % 0.5 % (0.0-2.0); EOSINOPHIL # 0.1 TH/MM3 (0-0.4); EOSINOPHIL % 2.1 % (0.0-4.0); HEMATOCRIT 34.1 % (35.0-46.0); HEMOGLOBIN 11.1 GM/DL (11.6-15.3); LYMPH % 28.8 % (9.0-44.0); LYMPHOCYTE # 1.5 TH/MM3 (1.0-4.8); MEAN CELL VOLUME 84.2 FL (80.0-100.0); MEAN CORPUSCULAR HEMOGLOBIN 27.4 PG (27.0-34.0); MEAN CORPUSCULAR HGB CONC 32.5 % (32.0-36.0); MEAN PLATELET VOLUME 9.2 FL (7.0-11.0); MONO % 12.6 % (0.0-8.0); MONOCYTE # 0.7 TH/MM3 (0-0.9); PLATELET COUNT 255 TH/MM3 (150-450); RED BLOOD COUNT 4.04 MIL/MM3 (4.00-5.30); RED CELL DISTRIBUTION WIDTH 13.3 % (11.6-17.2); WHITE BLOOD COUNT 5.2 TH/MM3 (4.0-11.0)
--- NOTE | 2018-02-12 09:27 | HHI.PR ---
Subjective Remarks Follow-up for breakthrough seizures. Patient reports feeling better today. She denies any headache, lightheadedness, dizziness, chest pain, shortness of breath, or abdominal complaints. No further seizure activity overnight. Objective Vitals Vital Signs Date Time Temp Pulse Resp B/P (MAP) Pulse Ox O2 Delivery O2 Flow Rate FiO2 02/12/18 07:41 98.5 69 18 118/57 (77) 95 02/12/18 04:25 98.4 93 16 126/81 (96) 96 02/12/18 00:39 98.4 75 16 117/59 (78) 97 02/11/18 19:40 98.3 90 16 121/60 (80) 94 02/11/18 16:22 98.3 99 18 148/64 (92) 95 02/11/18 12:14 97.4 95 18 117/56 (76) 98 Result Diagram: 02/10/18200902/12/18 0517 Imaging Last Impressions Head CT 02/10/18 1838 Signed Impressions: CONCLUSION: 1. No acute intracranial abnormality. Objective Remarks GENERAL: Well-nourished, well-developed pleasant young AA female patient in [facility]. SKIN: Warm and dry. No rash. HEENT: Normocephalic. Atraumatic. Pupils equal and round. Mucous membranes pink and moist. NECK: Supple. Trachea midline. Nontender. CARDIOVASCULAR: Regular rate and rhythm. No murmur appreciated. RESPIRATORY: No accessory muscle use. Clear to auscultation. Breath sounds equal bilaterally. GASTROINTESTINAL: Abdomen soft, non-tender, nondistended. Normoactive bowel sounds x4. MUSCULOSKELETAL: No obvious deformities. Extremities without clubbing, cyanosis , or edema. NEUROLOGICAL: Awake and alert. No obvious cranial nerve deficits. Motor grossly within normal limits. Moving all extremities spontaneously. Normal speech. PSYCHIATRIC: Appropriate mood and affect; insight and judgment normal. Procedures None. Medications and IVs Current Medications Medications (Trade) Dose Ordered Sig/Yvonne Route Start Time Stop Time Status Last Admin (NS Flush) 2 ml UNSCH PRN IV FLUSH 02/11/18 00:30 (NS Flush) 2 ml BID IV FLUSH 02/11/18 09:00 02/11/18 20:34 (Tylenol) 650 mg Q4H PRN PO 02/11/18 00:30 (Zofran Inj) 4 mg Q6H PRN IVP 02/11/18 00:30 (Narcan Inj) 0.4 mg UNSCH PRN IV PUSH 02/11/18 00:30 (Heaven-Colace) 1 tab BID PO 02/11/18 09:00 02/11/18 20:34 (Milk Of Magnesia Liq) 30 ml Q12H PRN PO 02/11/18 00:30 (Senokot) 17.2 mg Q12H PRN PO 02/11/18 00:30 (Dulcolax Supp) 10 mg DAILY PRN RECTAL 02/11/18 00:30 (Lactulose Liq) 30 ml DAILY PRN PO 02/11/18 00:30 (Motrin) 800 mg Q8HR PRN PO 02/11/18 02:15 02/11/18 09:27 (Keppra) 1,500 mg BID PO 02/11/18 09:00 02/11/18 20:34 (Trileptal) 300 mg BID PO 02/11/18 21:00 02/11/18 21:27 A/P Assessment and Plan 32-year-old female with known seizure disorder on Keppra presents to the emergency department for evaluation of a seizure. Seizure disorder, breakthrough seizures, with status epilepticus: Patient with a seizure prior to arrival, recurrent seizure while in the ED, s/p IV Ativan with subsequent resolution. Patient is having breakthrough seizures despite compliance with high dose keppra. -Head CT reviewed, no acute findings -UDS negative -Loading dose of Keppra given in the emergency department -Continue patient's home Keppra 1500mg bid, level pending -EEG unremarkable -Consulted neurology, seen by Dr. Doherty, recommended brain MRI, and started on Trileptal 300 mg po bid in addition to the patient's Keppra, with recommendations to eventually wean off Keppra as outpatient. -Patient advised on no driving, seizure precautions, patient verbalized understanding Headache: likely secondary to seizure -continue tylenol prn, ibuprofen prn -monitor for improvement -resolved today DVT Prophylaxis: teds/SCDs Discharge Planning 0920hrs: Await Brain MRI. Will discharge if MRI negative. 1100hrs: Brain MRI unremarkable. Will discharge home. Discharge patient to home Condition on discharge: Stable Regular Diet as tolerated Ad Noemi activity, no driving, seizure precautions Rx written: Trileptal 300mg bid Follow-up with primary care physician and neurologist Dr. Lazaro. Olena Contreras PA-C Feb 12, 2018 09:27
[2018-02-12] MEDS ORDERED: OXCA300T PO (09:28)
--- NOTE | 2018-02-12 09:30 | HHI.DCPOC ---
Discharge Care Plan Diagnosis: (1) Seizure disorder Goals to Promote Your Health * To prevent worsening of your condition and complications * To maintain your health at the optimal level Directions to Meet Your Goals Take your medications as prescribed Follow your dietary instruction Follow activity as directed Keep your appointments as scheduled Take your immunizations and boosters as scheduled If your symptoms worsen call your PCP, if no PCP go to Urgent Care Center or Emergency Room Smoking is Dangerous to Your Health. Avoid second hand smoke Call the 24-hour hour crisis hotline for domestic abuse at Olena Contreras PA-C Feb 12, 2018 9:30 am
[2018-02-12] MEDS ORDERED: GADODIAMIDE PF 287 MG/ML 5 ML VIAL (for RAD MRI) IV PUSH ONE (11:01)
[2018-02-12] MEDS: OXcarbazepine 300 MG TAB PO SCH (11:27)
[2018-02-12] MEDS: DOCUSATE SODIUM 50 MG/SENNA 8.6 MG TAB PO SCH (11:27)
[2018-02-12] MEDS: SODIUM CHLORIDE 0.9% FLUSH 10 ML FLUSH IV FLUSH SCH (11:27)
[2018-02-12] MEDS: levETIRAcetam 500 MG TAB PO SCH (11:27)
--- NOTE | 2018-02-12 11:38 | RADRPT ---
EXAM DATE: 02/12/2018 11:29 AM EDT AGE/SEX: 32 years / Female INDICATIONS: Seizures. CLINICAL DATA: This is the patient's initial encounter. Patient reports that signs and symptoms have been present for 2 days and indicates a pain score of 0/10. MEDICAL/SURGICAL HISTORY: . Seizures. Tubal ligation. COMPARISON: No prior [facility] exams available for comparison. TECHNIQUE: Multiplanar, multisequence examination of the brain was performed without and with 23 ml O mniscan (gadodiamide) contrast as a single exam dose. FINDINGS: Cerebrum: The ventricles are normal for age. No evidence of midline shift, mass lesion, hemorrhage or acute infarction. No extraaxial fluid collections are seen. The pituitary gland and suprasellar cistern are normal in configuration. White Matter: No significant signal abnormalities are seen in the white matter. Posterior Fossa: The cerebellum and brainstem are intact. The 4th ventricle is midline. The cerebel lopontine angle is unremarkable. The cerebellar tonsils are normal in position. Diffusion Imaging: No focal areas of restricted diffusion are seen. No evidence of acute infarction . Extracranial: The visualized portions of the orbits and paranasal sinuses are unremarkable. Post Contrast: No abnormal areas of parenchymal or dural enhancement. No evidence of blood-brain ba rrier breakdown. CONCLUSION: 1. Unremarkable exam. Electronically signed by: Hector Judd MD 02/12/2018 11:36 AM EDT
== END 2018-02-12 12:45 | disposition home or self-care (01) ==
LOC: NEPC 18:00 → NEDA 21:04 → NEPFCDU 02-11 01:08
PROVIDERS: ADMIT Family Medicine; ATTEND Family Medicine
DX: G40.411 Other generalized epilepsy and epileptic syndromes, intractable, with status epilepticus (principal); S01.512A Laceration without foreign body of oral cavity, initial encounter; R00.0 Tachycardia, unspecified; R51 Headache; Z79.899 Other long term (current) drug therapy; X58.XXXA Exposure to other specified factors, initial encounter
CPT/HCPCS: 70450; 70553; 80048; 80053; 80177; 80307; 81001; 82550; 82552; 85025; 93005; 95819; 96361; 96365; 96375; 99291; A9579; G0378; J1885; J1953; J2060; J7030